=== PATIENT | male | born 1950 | race Caucasian/White ===

== ENCOUNTER → 2020-08-16 14:07 | Outpatient (BNVA) | payer MEDICARE, OTHER, SELFPAY | PROVIDERS: Family Provider Internal Medicine; Visit Provider Podiatrist Foot & Ankle Surgery | DX: M25.571 Pain in right ankle and joints of right foot (principal) | CPT/HCPCS: 73610 ==

== ENCOUNTER → 2020-09-16 08:53 | Outpatient (BNVA) | payer MEDICARE, OTHER, SELFPAY | PROVIDERS: Family Provider Internal Medicine; PCP Family Medicine; Referring Provider Family Medicine; Visit Provider Anesthesiology Pain Medicine | DX: M51.16 Intervertebral disc disorders with radiculopathy, lumbar region (principal); M47.816 Spondylosis without myelopathy or radiculopathy, lumbar region; M54.9 Dorsalgia, unspecified; M19.90 Unspecified osteoarthritis, unspecified site; M62.830 Muscle spasm of back; Z79.899 Other long term (current) drug therapy; Z79.891 Long term (current) use of opiate analgesic | CPT/HCPCS: 99205 ==

== ENCOUNTER → 2020-10-04 10:58 | Outpatient (BNVA) | payer MEDICARE, OTHER, SELFPAY | PROVIDERS: Family Provider Internal Medicine; PCP Family Medicine; Visit Provider Anesthesiology Pain Medicine | DX: M25.511 Pain in right shoulder (principal); M25.512 Pain in left shoulder; Z79.891 Long term (current) use of opiate analgesic | CPT/HCPCS: 20610; J1030; J3490 ==

== ENCOUNTER → 2020-10-26 13:27 | Outpatient (BNVA) | payer MEDICARE, OTHER, SELFPAY | PROVIDERS: Family Provider Internal Medicine; PCP Family Medicine; Visit Provider Anesthesiology Pain Medicine | DX: M47.816 Spondylosis without myelopathy or radiculopathy, lumbar region (principal); M54.9 Dorsalgia, unspecified; Z79.891 Long term (current) use of opiate analgesic | CPT/HCPCS: 64493; 64494; 64495; J3490 ==

== ENCOUNTER → 2020-11-12 09:59 | Outpatient (BNVA) | payer MEDICARE, OTHER, SELFPAY | PROVIDERS: Family Provider Internal Medicine; PCP Family Medicine; Visit Provider Anesthesiology Pain Medicine | DX: M51.16 Intervertebral disc disorders with radiculopathy, lumbar region (principal); M54.9 Dorsalgia, unspecified; M47.816 Spondylosis without myelopathy or radiculopathy, lumbar region; M62.830 Muscle spasm of back; M19.90 Unspecified osteoarthritis, unspecified site; M25.511 Pain in right shoulder; M25.512 Pain in left shoulder; Z79.899 Other long term (current) drug therapy | CPT/HCPCS: 99214 ==

== ENCOUNTER → 2020-11-16 12:34 | Outpatient (BNVA) | payer MEDICARE, OTHER, SELFPAY | PROVIDERS: Family Provider Internal Medicine; PCP Family Medicine; Visit Provider Anesthesiology Pain Medicine | DX: M47.816 Spondylosis without myelopathy or radiculopathy, lumbar region (principal); M54.9 Dorsalgia, unspecified | CPT/HCPCS: 64635; 64636; J1030 ==

== ENCOUNTER 2020-11-29 12:02 | Outpatient (CLI) | payer MEDICARE, OTHER, SELFPAY | END 2020-11-29 12:03 | disposition home or self-care (01) | LOC: SPT 12:03 | PROVIDERS: Family Provider Internal Medicine; PCP Family Medicine; Visit Provider Podiatrist Foot & Ankle Surgery | DX: Z46.89 Encounter for fitting and adjustment of other specified devices (principal); M21.371 Foot drop, right foot; M54.10 Radiculopathy, site unspecified; M25.371 Other instability, right ankle | CPT/HCPCS: 97760; L1902 ==

== ENCOUNTER → 2020-11-30 13:36 | Outpatient (BNVA) | payer MEDICARE, OTHER, SELFPAY | PROVIDERS: Family Provider Internal Medicine; PCP Family Medicine; Visit Provider Anesthesiology Pain Medicine | DX: M47.816 Spondylosis without myelopathy or radiculopathy, lumbar region (principal); M54.9 Dorsalgia, unspecified; Z79.891 Long term (current) use of opiate analgesic | CPT/HCPCS: 64635; 64636; J1030 ==

== ENCOUNTER → 2020-12-14 11:01 | Outpatient (BNVA) | payer MEDICARE, OTHER, SELFPAY | PROVIDERS: Family Provider Internal Medicine; PCP Family Medicine; Visit Provider Anesthesiology Pain Medicine | DX: M51.16 Intervertebral disc disorders with radiculopathy, lumbar region (principal); M47.816 Spondylosis without myelopathy or radiculopathy, lumbar region; M54.9 Dorsalgia, unspecified; M19.019 Primary osteoarthritis, unspecified shoulder; M62.830 Muscle spasm of back; Z79.899 Other long term (current) drug therapy; Z79.891 Long term (current) use of opiate analgesic | CPT/HCPCS: 99214 ==

== ENCOUNTER → 2021-01-11 09:47 | Outpatient (BNVA) | payer MEDICARE, OTHER, SELFPAY | PROVIDERS: Family Provider Internal Medicine; PCP Family Medicine; Visit Provider Anesthesiology Pain Medicine | DX: M51.16 Intervertebral disc disorders with radiculopathy, lumbar region (principal); M48.062 Spinal stenosis, lumbar region with neurogenic claudication; M47.816 Spondylosis without myelopathy or radiculopathy, lumbar region; M19.019 Primary osteoarthritis, unspecified shoulder; M54.9 Dorsalgia, unspecified; M62.830 Muscle spasm of back; Z79.899 Other long term (current) drug therapy; Z79.891 Long term (current) use of opiate analgesic | CPT/HCPCS: 99214 ==

== ENCOUNTER → 2021-02-01 13:22 | Outpatient (BNVA) | payer OTHER, SELFPAY | PROVIDERS: Family Provider Internal Medicine; PCP Family Medicine; Referring Provider Anesthesiology Pain Medicine; Visit Provider Orthopaedic Surgery | DX: M62.830 Muscle spasm of back (principal); M51.16 Intervertebral disc disorders with radiculopathy, lumbar region; M47.016 Anterior spinal artery compression syndromes, lumbar region | CPT/HCPCS: 72110 ==

== ENCOUNTER → 2021-02-22 12:32 | Outpatient (BNVA) | payer OTHER, SELFPAY | PROVIDERS: Family Provider Internal Medicine; PCP Family Medicine; Visit Provider Anesthesiology Pain Medicine | DX: M19.011 Primary osteoarthritis, right shoulder (principal); M19.012 Primary osteoarthritis, left shoulder; E11.9 Type 2 diabetes mellitus without complications; M51.16 Intervertebral disc disorders with radiculopathy, lumbar region; M47.816 Spondylosis without myelopathy or radiculopathy, lumbar region; M19.90 Unspecified osteoarthritis, unspecified site; M54.9 Dorsalgia, unspecified; M62.830 Muscle spasm of back; Z79.899 Other long term (current) drug therapy; Z79.891 Long term (current) use of opiate analgesic | CPT/HCPCS: 20610; J1030; J3490 ==

== ENCOUNTER → 2021-03-28 10:07 | Outpatient (BNVA) | payer OTHER, SELFPAY | PROVIDERS: Family Provider Internal Medicine; PCP Family Medicine; Visit Provider Anesthesiology Pain Medicine | DX: M51.16 Intervertebral disc disorders with radiculopathy, lumbar region (principal); M47.816 Spondylosis without myelopathy or radiculopathy, lumbar region; M48.062 Spinal stenosis, lumbar region with neurogenic claudication; M19.90 Unspecified osteoarthritis, unspecified site; M53.3 Sacrococcygeal disorders, not elsewhere classified; M62.830 Muscle spasm of back; M25.511 Pain in right shoulder; M25.512 Pain in left shoulder; M79.604 Pain in right leg; M79.605 Pain in left leg; Z79.891 Long term (current) use of opiate analgesic | CPT/HCPCS: 99214 ==

== ENCOUNTER 2021-04-18 12:54 | Outpatient (CLI) | payer OTHER, SELFPAY ==
--- NOTE | 2021-04-18 13:08 | MR_ITS ---
WS: [id number] MRI LUMBAR SPINE NONCONTRAST TECHNIQUE: Sagittal T1, T2 and STIR imaging. Axial T1 and T2 imaging. CLINICAL INFORMATION: M54.5 - Low back pain COMPARISON: MRI 5 017 FINDINGS: Mild lumbar curve. No acute compression. No high-grade central canal stenosis. Small central protrusi on T10-T11 with mild central canal stenosis. L1-L2: No significant disc bulging. Moderate facet arthropathy. Spinal canal and foramen are patent. L2-L3: Mild disc bulging with osteophytic ridging. Mild facet arthropathy. Spinal canal and foramen a re patent. L3-L4: Mild disc bulging with osteophytic ridging. Impingement on the right subarticular recess and t raversing right L4 nerve root. Mild to moderate right and no significant left foraminal narrowing. Mo derate facet arthropathy. L4-L5: Mild disc bulging and osteophytic ridging. Moderate central canal stenosis. Impingement ramandeep sing L5 nerve roots bilaterally. Moderate facet arthropathy with ligamentum flavum flavum hypertrophy . Moderate right and no significant left foraminal narrowing.. L5-S1: Right eccentric disc osteophyte complex. Impingement on the right subarticular recess and ford ersing right S1 nerve root. Moderate facet arthropathy. Left foramen is patent. Moderate right L5-S1 foraminal narrowing unchanged from previous. Visualized pelvic bony structures: Normal. Paravertebral soft tissues: Normal. MR/MR lumbar spine wo con* [id number] IMPRESSION: 1. Mild lumbar curve. No acute compression. No high-grade central canal stenos is. 2. Small central protrusion T10-11 with mild central canal stenosis. This is s imilar to previous. 3. Disc bulging worse L4-5 with moderate central canal stenosis and impingemen t traversing L5 nerve roots bilaterally. This is unchanged from previous.Modera te right L4-5 foraminal narrowing. Recommend correlation for L4 nerve root symp toms. 4. Findings mild disc bulging with slight impingement on the right subarticula r recess and traversing right L4 nerve root. Mild to moderate right L3-4 forami nal narrowing. Recommend correlation for right L3 nerve root symptoms. This is stable since previous. 5. Moderate facet arthropathy L3-L5. 6. Disc osteophyte complex L5-S1 eccentric to the right impinges the traversin g right S1 nerve root and Right L5 nerve root unchanged from previous. Moderate right L5-S1 foraminal narrowing. This is stable compared to previous.
== END 2021-04-18 12:55 | disposition home or self-care (01) ==
PROVIDERS: PCP Family Medicine; Visit Provider Orthopaedic Surgery
DX: M25.78 Osteophyte, vertebrae (principal); M47.816 Spondylosis without myelopathy or radiculopathy, lumbar region; M51.26 Other intervertebral disc displacement, lumbar region
CPT/HCPCS: 72148

== ENCOUNTER → 2021-04-25 09:50 | Outpatient (BNVA) | payer OTHER, SELFPAY | PROVIDERS: PCP Family Medicine; Visit Provider Anesthesiology Pain Medicine | DX: G89.29 Other chronic pain (principal); M51.16 Intervertebral disc disorders with radiculopathy, lumbar region; M47.816 Spondylosis without myelopathy or radiculopathy, lumbar region; M19.90 Unspecified osteoarthritis, unspecified site; M48.062 Spinal stenosis, lumbar region with neurogenic claudication; M25.511 Pain in right shoulder; M25.512 Pain in left shoulder; M62.830 Muscle spasm of back; M53.3 Sacrococcygeal disorders, not elsewhere classified; Z79.891 Long term (current) use of opiate analgesic | CPT/HCPCS: 99214 ==

== ENCOUNTER → 2021-05-06 12:33 | Outpatient (BNVA) | payer OTHER, SELFPAY | PROVIDERS: PCP Family Medicine; Visit Provider Anesthesiology Pain Medicine | DX: Z01.812 Encounter for preprocedural laboratory examination (principal); E11.9 Type 2 diabetes mellitus without complications; M53.3 Sacrococcygeal disorders, not elsewhere classified; M48.062 Spinal stenosis, lumbar region with neurogenic claudication; Z79.891 Long term (current) use of opiate analgesic | CPT/HCPCS: 36416; 82962; G0260; J1030; J3490 ==

== ENCOUNTER → 2021-05-23 10:48 | Outpatient (BNVA) | payer OTHER, SELFPAY | PROVIDERS: PCP Family Medicine; Visit Provider Anesthesiology Pain Medicine | DX: M47.816 Spondylosis without myelopathy or radiculopathy, lumbar region (principal); M48.062 Spinal stenosis, lumbar region with neurogenic claudication; M51.16 Intervertebral disc disorders with radiculopathy, lumbar region; M53.3 Sacrococcygeal disorders, not elsewhere classified; M19.90 Unspecified osteoarthritis, unspecified site; M25.511 Pain in right shoulder; M25.512 Pain in left shoulder; M79.604 Pain in right leg; M79.605 Pain in left leg; M62.830 Muscle spasm of back; Z79.891 Long term (current) use of opiate analgesic | CPT/HCPCS: 99214 ==

== ENCOUNTER 2021-06-06 08:00 | Outpatient (CLI) | payer OTHER, SELFPAY ==
[2021-06-06 08:40] VITALS: BMI 28.8
--- NOTE | 2021-06-06 08:40 | ECG_ITS ---
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 Interpretive Statements NAME OF STUDY: EXERCISE SESTAMIBI STRESS TEST INDICATION: Shortness of Breath, PROCEDURE: The baseline electrocardiogram showed normal sinus rhythm with left axis deviation. Nonspecific T wave changes. Voltage criteria for LVH.. At the baseline, the patient's blood pressure was 148/70 mm Hg with a heart rate of 78. The patient exercised for 6 minutes on a standard Isai protocol. Patient attained a maximum heart rate of 151 beats per minute(101% of the maximum predicted heart rate) with a blood pressure at the peak exercise of 211/75 mm Hg. The EKG at the peak exercise revealed nonspecific T wave changes.. Patient did not have any chest pain or any significant arrhythmis with the exercise Sestamibi was injected 1 minute prior to the peak exercise During the recovery phase, there were no new changes. Blood pressure at the end of the recovery phase was 135/64 mm Hg with a heart rate of 90 per minute. CONCLUSION: 1. No significant EKG changes with the treadmill exercise 2. No exercise-induced chest pain or cardiac arrhythmia 3. Good impaired exercise tolerance, attained a maximum of METs 4. Sestamibi/Sestamibi perfusion results pending; see separate report. Electronically Signed On 06-10-2021 0:28:45 CDT by Jacob Ghosh M.D. [id number]
--- NOTE | 2021-06-06 08:41 | NMCV_ITS ---
NM ronal perf SPECT r/s* [id number] Aj Sharp Age: 70 Gender: M : 1950 Exam Date: 06/06/2021 09:28 Ordering Phys: Jacob Ghosh MD ([email or web address]) Technologist: HENNA Granados Exam Location: [facility] Indications: SHORTNESS OF BREATH STRESS TEST [facility] IMAGE PROTOCOL Rest/Stress 1 Exercise Day Radiopharmaceutical Dose (mCi) Administration Site Administered by Rest: Tc-99m 10.8 IV HENNA Fischer Sestamibi Stress:Tc-99m 32.6 IV HENNA Fischer Sestamibi Rest: 06-Jun-2021 60 Discovery 630 Stress: 06-Jun-2021 30 Discovery 630 Radiopharmaceutical was injected at 97% maximum heart rate. Images obtained in supine and prone position. SPECT RESULTS Technical Quality: Excellent Raw Data Analysis: Normal Image Corrections: No attenuation or motion correction applied Summed Stress Score: 0 Summed Rest Score: 4 Summed Difference Score: 0 PERFUSION FINDINGS Patchy areas of decreased tracer uptake were noted to the inferior wall and apical regions. No significant reversibility was noted in these regions. FUNCTIONAL RESULTS (calculated via Gated SPECT) Stress Image LV EF (%): 67 Stress EDV (mL):106 TID: 1.03 Stress ESV (mL):35 FUNCTIONAL FINDINGS: Segmental wall motion analysis revealing no gross wall motion abnormalities IMPRESSIONS 1. Myocardial perfusion imaging revealing patchy areas of persistent decreased tracer uptake in the inferior wall and apical regions suggestive of myocardial scarring versus attenuation artifact. 2. Normal LV ejection fraction of 67%. 3. LV wall motion analysis revealing no gross wall motion abnormalities. 4. Normal LV volume No significant coronary ischemia, based on the above findings Dr Jacob Ghosh MD FACC (Electronically Signed) Final Date: 06 June 2021 21:33 S
[2021-06-06 10:25] VITALS: BP 135/64; PULSE 87
== END 2021-06-06 08:01 | disposition home or self-care (01) ==
LOC: CDL 08:05
PROVIDERS: PCP Family Medicine; Visit Provider Internal Medicine Cardiovascular Disease
DX: R06.02 Shortness of breath (principal)
CPT/HCPCS: 78452; 93017; A9500

== ENCOUNTER → 2021-06-20 10:27 | Outpatient (BNVA) | payer OTHER, SELFPAY | PROVIDERS: PCP Family Medicine; Visit Provider Anesthesiology Pain Medicine | DX: M51.16 Intervertebral disc disorders with radiculopathy, lumbar region (principal); M47.816 Spondylosis without myelopathy or radiculopathy, lumbar region; M48.062 Spinal stenosis, lumbar region with neurogenic claudication; M53.3 Sacrococcygeal disorders, not elsewhere classified; M62.830 Muscle spasm of back; M19.011 Primary osteoarthritis, right shoulder; M19.012 Primary osteoarthritis, left shoulder; E11.9 Type 2 diabetes mellitus without complications; M79.604 Pain in right leg; M79.605 Pain in left leg; I10 Essential (primary) hypertension; E78.2 Mixed hyperlipidemia; Z79.891 Long term (current) use of opiate analgesic | CPT/HCPCS: 99214 ==

== ENCOUNTER → 2021-06-29 11:50 | Outpatient (BNVA) | payer OTHER, SELFPAY | PROVIDERS: PCP Family Medicine; Referring Provider Orthopaedic Surgery; Visit Provider Orthopaedic Surgery | DX: M12.811 Other specific arthropathies, not elsewhere classified, right shoulder (principal); M12.812 Other specific arthropathies, not elsewhere classified, left shoulder | CPT/HCPCS: 73030 ==

== ENCOUNTER → 2021-08-23 10:24 | Outpatient (BNVA) | payer OTHER, SELFPAY | PROVIDERS: PCP Family Medicine; Visit Provider Anesthesiology Pain Medicine | DX: G89.29 Other chronic pain (principal); M51.16 Intervertebral disc disorders with radiculopathy, lumbar region; M47.816 Spondylosis without myelopathy or radiculopathy, lumbar region; M48.062 Spinal stenosis, lumbar region with neurogenic claudication; M62.830 Muscle spasm of back; M53.3 Sacrococcygeal disorders, not elsewhere classified; M19.019 Primary osteoarthritis, unspecified shoulder; M79.604 Pain in right leg; M79.605 Pain in left leg; Z79.899 Other long term (current) drug therapy; Z79.891 Long term (current) use of opiate analgesic | CPT/HCPCS: 99214 ==

== ENCOUNTER → 2021-09-07 13:44 | Outpatient (BNVA) | payer OTHER, SELFPAY | PROVIDERS: PCP Family Medicine; Visit Provider Anesthesiology Pain Medicine | DX: Z01.812 Encounter for preprocedural laboratory examination (principal); E11.9 Type 2 diabetes mellitus without complications; M25.511 Pain in right shoulder; M25.512 Pain in left shoulder; Z79.891 Long term (current) use of opiate analgesic | CPT/HCPCS: 20610; 36416; 82962; J1030; J3490 ==

== ENCOUNTER → 2021-09-21 11:26 | Outpatient (BNVA) | payer OTHER, SELFPAY | PROVIDERS: PCP Family Medicine; Visit Provider Anesthesiology Pain Medicine | DX: G89.29 Other chronic pain (principal); M51.16 Intervertebral disc disorders with radiculopathy, lumbar region; M47.816 Spondylosis without myelopathy or radiculopathy, lumbar region; M48.062 Spinal stenosis, lumbar region with neurogenic claudication; M19.019 Primary osteoarthritis, unspecified shoulder; M19.90 Unspecified osteoarthritis, unspecified site; M25.511 Pain in right shoulder; M25.512 Pain in left shoulder; M79.604 Pain in right leg; M79.605 Pain in left leg; M62.830 Muscle spasm of back; M53.3 Sacrococcygeal disorders, not elsewhere classified; Z79.899 Other long term (current) drug therapy; Z79.891 Long term (current) use of opiate analgesic | CPT/HCPCS: 99214 ==

== ENCOUNTER → 2021-10-20 10:48 | Outpatient (BNVA) | payer OTHER, SELFPAY | PROVIDERS: PCP Family Medicine; Visit Provider Anesthesiology Pain Medicine | DX: G89.29 Other chronic pain (principal); M51.16 Intervertebral disc disorders with radiculopathy, lumbar region; M47.816 Spondylosis without myelopathy or radiculopathy, lumbar region; M48.062 Spinal stenosis, lumbar region with neurogenic claudication; M19.90 Unspecified osteoarthritis, unspecified site; M53.3 Sacrococcygeal disorders, not elsewhere classified; M62.830 Muscle spasm of back; Z79.899 Other long term (current) drug therapy; Z79.891 Long term (current) use of opiate analgesic | CPT/HCPCS: 99214 ==

== ENCOUNTER → 2021-11-21 10:55 | Outpatient (BNVA) | payer OTHER, SELFPAY | PROVIDERS: PCP Family Medicine; Visit Provider Anesthesiology Pain Medicine | DX: M51.16 Intervertebral disc disorders with radiculopathy, lumbar region (principal); M47.816 Spondylosis without myelopathy or radiculopathy, lumbar region; M48.062 Spinal stenosis, lumbar region with neurogenic claudication; M19.90 Unspecified osteoarthritis, unspecified site; M62.830 Muscle spasm of back; M53.3 Sacrococcygeal disorders, not elsewhere classified; M25.511 Pain in right shoulder; M25.512 Pain in left shoulder; M79.604 Pain in right leg; M79.605 Pain in left leg; Z79.899 Other long term (current) drug therapy; Z79.891 Long term (current) use of opiate analgesic | CPT/HCPCS: 99214 ==

== ENCOUNTER → 2021-12-20 10:23 | Outpatient (BNVA) | payer OTHER, SELFPAY | PROVIDERS: PCP Family Medicine; Visit Provider Anesthesiology Pain Medicine | DX: G89.29 Other chronic pain (principal); M51.16 Intervertebral disc disorders with radiculopathy, lumbar region; M47.816 Spondylosis without myelopathy or radiculopathy, lumbar region; M48.062 Spinal stenosis, lumbar region with neurogenic claudication; M25.511 Pain in right shoulder; M25.512 Pain in left shoulder; M19.019 Primary osteoarthritis, unspecified shoulder; M53.3 Sacrococcygeal disorders, not elsewhere classified; M79.604 Pain in right leg; M79.605 Pain in left leg; M62.830 Muscle spasm of back; Z79.899 Other long term (current) drug therapy; Z79.891 Long term (current) use of opiate analgesic | CPT/HCPCS: 99214 ==

== ENCOUNTER → 2022-01-24 10:40 | Outpatient (BNVA) | payer OTHER, SELFPAY | PROVIDERS: PCP Family Medicine; Visit Provider Anesthesiology Pain Medicine | DX: M51.16 Intervertebral disc disorders with radiculopathy, lumbar region (principal); M79.18 Myalgia, other site; M47.816 Spondylosis without myelopathy or radiculopathy, lumbar region; M48.062 Spinal stenosis, lumbar region with neurogenic claudication; M19.90 Unspecified osteoarthritis, unspecified site; M53.3 Sacrococcygeal disorders, not elsewhere classified; Z79.899 Other long term (current) drug therapy; Z79.891 Long term (current) use of opiate analgesic | CPT/HCPCS: 20553; 99213; J1030; J3490 ==

== ENCOUNTER → 2022-02-23 14:13 | Outpatient (BNVA) | payer OTHER, SELFPAY | PROVIDERS: PCP Family Medicine; Visit Provider Anesthesiology Pain Medicine | DX: M19.011 Primary osteoarthritis, right shoulder (principal); M19.012 Primary osteoarthritis, left shoulder; E11.65 Type 2 diabetes mellitus with hyperglycemia; Z79.84 Long term (current) use of oral hypoglycemic drugs; Z79.891 Long term (current) use of opiate analgesic | CPT/HCPCS: 20610; 36416; 82962; J1040 ==

== ENCOUNTER → 2022-02-28 09:46 | Outpatient (BNVA) | payer OTHER, SELFPAY | PROVIDERS: PCP Family Medicine; Visit Provider Anesthesiology Pain Medicine | DX: M51.16 Intervertebral disc disorders with radiculopathy, lumbar region (principal); M47.816 Spondylosis without myelopathy or radiculopathy, lumbar region; M48.062 Spinal stenosis, lumbar region with neurogenic claudication; M19.011 Primary osteoarthritis, right shoulder; M19.012 Primary osteoarthritis, left shoulder; M53.3 Sacrococcygeal disorders, not elsewhere classified; M25.511 Pain in right shoulder; M25.512 Pain in left shoulder; M79.604 Pain in right leg; M79.605 Pain in left leg; M62.830 Muscle spasm of back; Z79.891 Long term (current) use of opiate analgesic; Z79.899 Other long term (current) drug therapy | CPT/HCPCS: 99214 ==

== ENCOUNTER → 2022-03-14 10:17 | Outpatient (BNVA) | payer OTHER, SELFPAY | PROVIDERS: PCP Family Medicine; Visit Provider Internal Medicine Cardiovascular Disease | DX: I25.10 Atherosclerotic heart disease of native coronary artery without angina pectoris (principal); I10 Essential (primary) hypertension; E11.65 Type 2 diabetes mellitus with hyperglycemia; Z79.84 Long term (current) use of oral hypoglycemic drugs; E78.2 Mixed hyperlipidemia | CPT/HCPCS: 99214 ==

== ENCOUNTER → 2022-03-30 09:07 | Outpatient (BNVA) | payer OTHER, SELFPAY | PROVIDERS: PCP Family Medicine; Visit Provider Anesthesiology Pain Medicine | DX: Z79.891 Long term (current) use of opiate analgesic (principal); M51.16 Intervertebral disc disorders with radiculopathy, lumbar region; M47.816 Spondylosis without myelopathy or radiculopathy, lumbar region; M19.90 Unspecified osteoarthritis, unspecified site; M48.062 Spinal stenosis, lumbar region with neurogenic claudication; M53.3 Sacrococcygeal disorders, not elsewhere classified; M62.830 Muscle spasm of back; Z79.899 Other long term (current) drug therapy | CPT/HCPCS: 99214 ==

== ENCOUNTER → 2022-04-18 13:56 | Outpatient (BNVA) | payer OTHER, SELFPAY | PROVIDERS: PCP Family Medicine; Visit Provider Anesthesiology Pain Medicine | DX: Z79.891 Long term (current) use of opiate analgesic (principal); Z79.84 Long term (current) use of oral hypoglycemic drugs; M47.816 Spondylosis without myelopathy or radiculopathy, lumbar region; E11.65 Type 2 diabetes mellitus with hyperglycemia; M48.062 Spinal stenosis, lumbar region with neurogenic claudication | CPT/HCPCS: 36416; 64635; 64636; 82962; J1030 ==

== ENCOUNTER → 2022-05-22 12:24 | Outpatient (BNVA) | payer OTHER, SELFPAY | PROVIDERS: PCP Family Medicine; Visit Provider Anesthesiology Pain Medicine | DX: Z01.812 Encounter for preprocedural laboratory examination (principal); M47.816 Spondylosis without myelopathy or radiculopathy, lumbar region; M48.062 Spinal stenosis, lumbar region with neurogenic claudication; Z79.84 Long term (current) use of oral hypoglycemic drugs; E11.9 Type 2 diabetes mellitus without complications | CPT/HCPCS: 36416; 64635; 64636; 82962; J1030 ==

== ENCOUNTER 2022-08-18 12:59 | Outpatient (CLI) | payer OTHER, SELFPAY ==
--- NOTE | 2022-08-18 13:20 | US_ITS ---
WS: [id number] Subcutaneous ultrasound to the posterior right knee, 08/18/2022. Clinical Data: R KNEE PAIN/FULLNESS POSTERIOR FOSSA FLIP TO CITC Comparison: None. Findings: There is a cystic region in the subcutaneous tissue measuring 0.96 x 1.42 x 4.02 cm. There is no sign ificant debris within this cyst. No masses are noted. US/US soft tissue/extremity [id number] Impression: Probable right knee Cantu's cyst.
== END 2022-08-18 13:00 | disposition home or self-care (01) ==
LOC: RAD 13:00
PROVIDERS: PCP Family Medicine; Visit Provider Family Medicine
DX: M25.561 Pain in right knee (principal)
CPT/HCPCS: 76882

== ENCOUNTER → 2022-09-14 11:14 | Outpatient (BNVA) | payer OTHER, SELFPAY | PROVIDERS: PCP Family Medicine; Visit Provider Internal Medicine Cardiovascular Disease | DX: I25.10 Atherosclerotic heart disease of native coronary artery without angina pectoris (principal); I10 Essential (primary) hypertension; E78.2 Mixed hyperlipidemia; E11.65 Type 2 diabetes mellitus with hyperglycemia; Z79.84 Long term (current) use of oral hypoglycemic drugs | CPT/HCPCS: 99214 ==

== ENCOUNTER → 2023-01-15 10:58 | Outpatient (BNVA) | payer OTHER, SELFPAY | PROVIDERS: PCP Family Medicine; Referring Provider Family Medicine; Visit Provider Student in an Organized Health Care Education/Training Program | DX: M17.11 Unilateral primary osteoarthritis, right knee (principal) | CPT/HCPCS: 20610; 73560; 73565; 99204; J3301 ==

== ENCOUNTER → 2023-02-01 13:05 | Outpatient (BNVA) | payer OTHER, SELFPAY | PROVIDERS: PCP Family Medicine; Visit Provider Nurse Practitioner Family | DX: E11.65 Type 2 diabetes mellitus with hyperglycemia (principal); M17.11 Unilateral primary osteoarthritis, right knee; Z79.84 Long term (current) use of oral hypoglycemic drugs | CPT/HCPCS: 99213 ==

== ENCOUNTER → 2023-03-12 13:31 | Outpatient (BNVA) | payer OTHER, SELFPAY | PROVIDERS: PCP Family Medicine; Visit Provider Student in an Organized Health Care Education/Training Program | DX: M17.11 Unilateral primary osteoarthritis, right knee (principal) | CPT/HCPCS: 99213 ==

== ENCOUNTER → 2023-03-29 09:52 | Outpatient (BNVA) | payer OTHER, SELFPAY | PROVIDERS: PCP Family Medicine; Visit Provider Internal Medicine Cardiovascular Disease | DX: I25.10 Atherosclerotic heart disease of native coronary artery without angina pectoris (principal); E11.65 Type 2 diabetes mellitus with hyperglycemia; E78.2 Mixed hyperlipidemia; I10 Essential (primary) hypertension; Z79.84 Long term (current) use of oral hypoglycemic drugs | CPT/HCPCS: 99214 ==

== ENCOUNTER 2023-04-06 10:52 | Outpatient (CLI) | payer OTHER, SELFPAY ==
--- NOTE | 2023-04-06 11:45 | MR_ITS ---
WS: [id number] MRI RIGHT KNEE NONCONTRAST TECHNIQUE: Axial PD, coronal PD fat sat, coronal PD, sagittal PD, and sagittal PD fat-sat images obta ined. CLINICAL INFORMATION: rule out meniscus tear COMPARISON: None. FINDINGS: Distal quadriceps and patella tendons are intact. Hypertrophic patella. Small suprapatellar effusion. Moderate tricompartmental arthritis. Edema involving the medial femoral condyle with osteochondral defect measuring 9 mm. Full-thickness c artilage defects in the medial joint compartment with subchondral edema. Tear involving the medial me niscal root with blunting. Lateral meniscus demonstrates chronic thinning but no acute tear. Lateral collateral ligament appears intact. Moderate chondromalacia patella. No subchondral edema. Me dial collateral ligament appears intact. Popliteus appears intact. Normal medial and lateral patellar retinaculum. Lobulated popliteal cyst measuring 3.1 x 1.2 x 1.9 cm AP by transverse by craniocaudal. MR/MR knee RT wo con* [id number] IMPRESSION: 1. Normal ACL and PCL. 2. Small suprapatellar effusion. 3. Tear involving the medial meniscus at the meniscal root with blunting. Mode rate to advanced narrowing medial joint compartment with subchondral edema. 4. Grade IV chondromalacia medial joint compartment with small osteochondral d efect measuring 9 mm. 5. No acute appearing lateral meniscal tears. Chronic thinning of the lateral meniscus. 6. Moderate chondromalacia patella. 7. Lobulated popliteal cyst. Outbridge grading: grade IV: full-thickness cartilage loss with underlying bone reactive changes
== END 2023-04-06 10:53 | disposition home or self-care (01) ==
LOC: RAD 10:56
PROVIDERS: PCP Family Medicine; Visit Provider Student in an Organized Health Care Education/Training Program
DX: M17.11 Unilateral primary osteoarthritis, right knee (principal); S83.241A Other tear of medial meniscus, current injury, right knee, initial encounter; X58.XXXA Exposure to other specified factors, initial encounter; M25.461 Effusion, right knee; M22.41 Chondromalacia patellae, right knee; M71.21 Synovial cyst of popliteal space [Baker], right knee
CPT/HCPCS: 73721

== ENCOUNTER → 2023-04-19 12:41 | Outpatient (BNVA) | payer OTHER, SELFPAY | PROVIDERS: PCP Family Medicine; Visit Provider Student in an Organized Health Care Education/Training Program | DX: Z01.818 Encounter for other preprocedural examination (principal); M17.11 Unilateral primary osteoarthritis, right knee; E11.9 Type 2 diabetes mellitus without complications; Z79.84 Long term (current) use of oral hypoglycemic drugs | CPT/HCPCS: 99214 ==

== ENCOUNTER 2023-05-21 14:11 | Outpatient (CLI) | payer OTHER, SELFPAY ==
--- NOTE | 2023-05-21 14:30 | CT_ITS ---
WS: [id number] CT RIGHT KNEE, NONCONTRAST TECHNIQUE: Noncontrast CT of the RIGHT knee to include the RIGHT hip and ankle. [facility] CLINICAL INFORMATION: djd right knee COMPARISON: None. DLP: 1080.[address] scans at [facility] use at least one of these dose optimization techniques: automated e xposure control; mA and/or kV adjustment per patient size (includes targeted exams where dose is matc hed to clinical indication); or iterative reconstruction. FINDINGS: Moderate degenerative narrowing both hips. Hypertrophic changes sacroiliac joints. Enlarged prostate measuring 4.5 cm. Vascular calcification. Small effusion. Moderate to advanced tricompartmental arthr itis worse in the medial joint compartment. Hypertrophic patella. IMPRESSION: Images obtained for preoperative purposes.
== END 2023-05-21 14:12 | disposition home or self-care (01) ==
PROVIDERS: PCP Family Medicine; Visit Provider Student in an Organized Health Care Education/Training Program
DX: M17.11 Unilateral primary osteoarthritis, right knee (principal)
CPT/HCPCS: 73700

== ENCOUNTER → 2023-05-25 09:15 | Outpatient (BNVA) | payer OTHER, SELFPAY | PROVIDERS: PCP Family Medicine; Visit Provider Family Medicine | DX: Z01.818 Encounter for other preprocedural examination (principal); E11.9 Type 2 diabetes mellitus without complications | CPT/HCPCS: 80053; 81000; 83036; 85025 ==

== ENCOUNTER 2023-06-04 10:10 | Observation (INO) | payer OTHER, SELFPAY ==
[2023-06-01 15:05] VITALS: BMI 28.2
[2023-06-04] VITALS (21 sets, daily range): BP systolic 119–175; BP diastolic 63–95; PULSE 68–96; RESP 15–20; TEMP 36.2–36.9; O2SAT 91–97; BMI 28.2
[2023-06-04] MEDS: acetaminophen 1,000 MG/100 ML PIGGYBACK 400 MG IV ×3 (06:39→22:20)
[2023-06-04] MEDS: ketorolac 30 mg/mL INJ IVP (06:39)
[2023-06-04] MEDS: sodium chloride 0.9% 1,000 ML 30 ML IV (06:40)
[2023-06-04] MEDS: lactated ringers 500 ML IV (06:52)
--- NOTE | 2023-06-04 06:53 | ANES.PREANE2 ---
Pre-Anesthetic Assessment Height/Weight: Height 1.88 m Weight 99.79 kg Temp Pulse Resp BP Pulse Ox O2 Del Method 97.2 F L 75 17 175/95 95 Room Air 06/04/23 06:09 06/04/23 06:09 06/04/23 06:09 06/04/23 06:09 06/04/23 06:09 06/04/23 06:09 Preop Diagnosis: Right knee DJD Operation Date: 06/04/23 07:00 Proposed Procedures p RIGHT TOTAL KNEE ARTHROSCOPY WITH NOLAN [id number],M17.11(Right) - Javier Aguilera DO Familial anesthetic complications: None Was Beta James taken within 24 hours: N/A Was Clonidine taken within 24 hours: N/A Last intake: Intake Last Liquid Date 06/03/23 Last Liquid Time 20:30 Last Solid Date 06/03/23 Last Solid Time 20:30 Social No alcohol and No tobacco Exam alert, oriented x 3, clear to auscultation bilaterally and regular rate & rhythm Airway Mallampati: Class II Dentition: full CV/HEM Coronary Artery Disease (not on anticoagulant) and Hypertension Metabolic Diabetes Mellitus Neuropsych 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 - discussed nerve block and possibility of nerve damage, patient desires to proceed Anesthetic Plan ASA status: 3 Anesthesia: Regional (specify below) Risk of > 500 ml blood loss (7ml/kg in children): No Medications/Allergies Home Medications Medication Instructions Recorded Confirmed Last Taken Type Mely AFO #1 ea 08/16/20 04/19/23 Unknown Rx albuterol sulfate 2.5 mg/3 mL 2.5 mg inhalation Q6H 08/16/20 06/01/23 03/21/23 History (0.083 %) solution for nebulization alogliptin 25 mg tablet 25 mg PO DAILY 08/16/20 06/01/23 06/01/23 History ascorbic acid (vitamin C) 1,000 mg 500 mg PO BID 08/16/20 06/01/23 05/28/23 History tablet cholecalciferol (vitamin D3) 125 125 mcg PO DAILY 08/16/20 06/01/23 05/28/23 History mcg (5,000 unit) capsule ASO right ankle #1 ea 11/29/20 04/19/23 Unknown Rx AFO right lower extremity #1 ea 01/17/21 04/19/23 Unknown Rx omega-3 fatty acids 1,000 mg 1,000 mg PO BID 02/01/21 06/01/23 05/28/23 History capsule (Fish Oil Concentrate) zinc acetate 50 mg (zinc) capsule 50 mg PO DAILY 02/01/21 06/01/23 05/28/23 History (Galzin) B-complex with vitamin C 1 tab PO DAILY 05/17/21 06/01/23 05/28/23 History aspirin 81 mg tablet,delayed 81 mg PO DAILY 05/17/21 06/01/23 05/30/23 History release (Adult Aspirin Regimen) glipizide 10 mg tablet 10 mg PO BID 05/17/21 06/01/23 06/01/23 History metformin 1,000 mg tablet 1,000 mg PO BID 05/17/21 06/01/23 06/01/23 History multivitamin 1 tab PO DAILY 05/17/21 06/01/23 05/28/23 History rosuvastatin 40 mg tablet 40 mg PO DAILY #90 tabs 03/14/22 06/01/23 06/01/23 Rx acetaminophen 500 mg capsule 500 mg PO BID@08,16 09/14/22 06/01/23 06/01/23 History lisinopril 40 mg tablet 20 mg PO BID #90 tabs 02/15/23 06/01/23 06/01/23 Rx hydrocodone 5 mg-acetaminophen 325 1 tab PO BID 05/25/23 06/01/23 06/01/23 History mg tablet melatonin 5 mg capsule 30 mg PO BEDTIME 05/25/23 06/01/23 04/19/23 History amoxicillin 500 mg capsule 500 mg PO 3XD 06/01/23 06/01/23 06/01/23 History carvedilol 25 mg tablet 25 mg PO BID 90 days #180 tabs 06/01/23 06/01/23 06/01/23 Rx Allergies Allergy/AdvReac Type Severity Reaction Status Date / Time oxycodone Allergy unknown Verified 05/25/23 09:40 Current Medications Generic Name Dose Route Start Last Admin Trade Name Freq PRN Reason Stop Dose Admin Sodium Chloride 1,000 mls @ 30 mls/hr 06/04/23 06:00 06/04/23 06:40 Sodium Chloride 0.9% IV 06/05/23 05:59 30 mls/hr .Q24H MICHAEL Administration PFSH Anesthesia Medical History ADHD Anxiety Basal cell carcinoma Diabetes Dysthymic disorder Essential hypertension Hiatal hernia Hyperlipidemia Hypertension Impaired hearing Impotence [employer] current use of anticoagulant Low back pain PTSD (post-traumatic stress disorder) Tinnitus Surgical History History of laminectomy History of PTCA History of repair of left rotator cuff History of total knee arthroplasty Family History Mother COPD (chronic obstructive pulmonary disease) Lung disease Father Heart attack CAD (coronary artery disease) Heart aneurysm Sister Cerebral hemorrhage Denies family history of Diabetes Clotting disorder Dementia Chronic kidney disease (CKD) Suicide Anesthesia complication Bleeding disorder Cancer Stroke Social History Smoking and tobacco status: never smoked Second hand smoke exposure: No Alcohol intake: never Substance/Drug Use: never Data Anesthesia Cardiac Studies: Sestamibi Stress Test (Cardiology) 06/06/21
--- NOTE | 2023-06-04 06:55 | W.PM.OPSUD ---
Surgery/Procedure H&P Update DATE OF PROCEDURE: June 04, 2023 DATE H&P PERFORMED: 04/19/23 H&P UPDATE INFORMATION: I have reviewed H&P completed within last 30 days, I have examined patient prior to procedure and No changes to prior documentation PREOP DIAGNOSIS: Right knee DJD PRIMARY INDICATION FOR PROCEDURE: Right knee degenerative joint disease failed conservative treatment PLANNED PROCEDURE: Operation Date: 06/04/23 07:00 Proposed Procedures p RIGHT TOTAL KNEE ARTHROSCOPY WITH NOLAN [id number],M17.11(Right) - Javier Aguilera DO
--- NOTE | 2023-06-04 06:56 | P.HP_ITS ---
Providers/Chief Complaint Admitting Physician: Javier Aguilera DO Primary Care Provider: Hannah Suarez MD Chief Complaint: M17.11 History of Present Illness Aj Sharp is a 72 year old male who presents for hospital admission secondary to failed conservative treatment of right knee degenerative joint disease with plan for right total knee arthroplasty he is failed conservative treatment at this point time elects proceed with a right total knee arthroplasty. He has been worked up in the outpatient setting appropriately as well as went through a preoperative clinic team for clearance for surgical intervention. He has been preoperatively cleared. He presents today to proceed with a right total knee all questions answered. No change in his health at this time. Review of Systems General: Reports: 10 or more systems reviewed and unremarkable except in HPI and below Medications/Allergies Home Medications Medication Instructions Recorded Confirmed Last Taken Type [place] AFO #1 ea 08/16/20 04/19/23 Unknown Rx albuterol sulfate 2.5 mg/3 mL 2.5 mg inhalation Q6H 08/16/20 06/01/23 03/21/23 History (0.083 %) solution for nebulization alogliptin 25 mg tablet 25 mg PO DAILY 08/16/20 06/01/23 06/01/23 History ascorbic acid (vitamin C) 1,000 mg 500 mg PO BID 08/16/20 06/01/23 05/28/23 History tablet cholecalciferol (vitamin D3) 125 125 mcg PO DAILY 08/16/20 06/01/23 05/28/23 History mcg (5,000 unit) capsule ASO right ankle #1 ea 11/29/20 04/19/23 Unknown Rx AFO right lower extremity #1 ea 01/17/21 04/19/23 Unknown Rx omega-3 fatty acids 1,000 mg 1,000 mg PO BID 02/01/21 06/01/23 05/28/23 History capsule (Fish Oil Concentrate) zinc acetate 50 mg (zinc) capsule 50 mg PO DAILY 02/01/21 06/01/23 05/28/23 History (Galzin) B-complex with vitamin C 1 tab PO DAILY 05/17/21 06/01/23 05/28/23 History aspirin 81 mg tablet,delayed 81 mg PO DAILY 05/17/21 06/01/23 05/30/23 History release (Adult Aspirin Regimen) glipizide 10 mg tablet 10 mg PO BID 05/17/21 06/01/23 06/01/23 History metformin 1,000 mg tablet 1,000 mg PO BID 05/17/21 06/01/23 06/01/23 History multivitamin 1 tab PO DAILY 05/17/21 06/01/23 05/28/23 History rosuvastatin 40 mg tablet 40 mg PO DAILY #90 tabs 03/14/22 06/01/23 06/01/23 Rx acetaminophen 500 mg capsule 500 mg PO BID@08,16 09/14/22 06/01/23 06/01/23 History lisinopril 40 mg tablet 20 mg PO BID #90 tabs 02/15/23 06/01/23 06/01/23 Rx hydrocodone 5 mg-acetaminophen 325 1 tab PO BID 05/25/23 06/01/23 06/01/23 History mg tablet melatonin 5 mg capsule 30 mg PO BEDTIME 05/25/23 06/01/23 04/19/23 History amoxicillin 500 mg capsule 500 mg PO 3XD 06/01/23 06/01/23 06/01/23 History carvedilol 25 mg tablet 25 mg PO BID 90 days #180 tabs 06/01/23 06/01/23 06/01/23 Rx Allergies Allergy/AdvReac Type Severity Reaction Status Date / Time oxycodone Allergy unknown Verified 05/25/23 09:40 PFSH Acute PFSH: Medical History ADHD Anxiety Basal cell carcinoma Diabetes Dysthymic disorder Essential hypertension Hiatal hernia Hyperlipidemia Hypertension Impaired hearing Impotence 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 Low back pain PTSD (post-traumatic stress disorder) Tinnitus Surgical History History of laminectomy History of PTCA History of repair of left rotator cuff History of total knee arthroplasty Family History Mother COPD (chronic obstructive pulmonary disease) Lung disease Father Heart attack CAD (coronary artery disease) Heart aneurysm Sister Cerebral hemorrhage Denies family history of Diabetes Clotting disorder Dementia Chronic kidney disease (CKD) Suicide Anesthesia complication Bleeding disorder Cancer Stroke Social History (Reviewed 04/19/23 @ 12:47 by JENNIFER Cleaning Smoking and tobacco status: never smoked Second hand smoke exposure: No Alcohol intake: never Substance/Drug Use: never Vitals/I&O/Wt Last Vital Signs Temp 97.2 F L 06/04/23 06:09 Pulse 75 06/04/23 06:09 Resp 17 06/04/23 06:09 BP 175/95 06/04/23 06:09 Pulse Ox 95 06/04/23 06:09 O2 Del Method Room Air 06/04/23 06:09 06/03/23 06/03/23 06/04/23 14:59 22:59 06:59 Intake Total 100 / 100 Balance 100 / 100 Weight last 48 hrs Weight 220 lb Physical Exam Narrative: Right knee examination there are no gross deformities of the hips or ankles. The range of motion of both hips and ankles are normal and no tenderness to palpation.? Right knee shows boggy effusion. There is severe tenderness to palpation primarily over the medial compartment of the right knee. Crepitance is felt with range of motion. There is patellafemoral crepitance as well.? Positive patellar grind with significant pain and discomfort. knees are stable to varus and valgus stress testing. There is a varus alignment grossly of 10 degrees correctable on ex amination.? range of motion 0 to greater than 115 Const: COMMON NORMALS: no acute distress and average body habitus HENMT: COMMON NORMALS: normocephalic and atraumatic Resp: COMMON NORMALS: normal respiratory effort and No retractions Data Xray Ortho: My impression: X-rays in the outpatient setting of the right knee reviewed in person int erpreted by myself demonstrating a stable left total knee arthroplasty with a tricompartmental arthritic changes noted throughout the right knee. A&P Assessment and plan (1) Right knee DJD: Plan Patient presents today findings consistent with right knee degenerative joint disease failed conservative treatments been worked up in the outpatient setting at this point in time has elected to proceed with a right total knee arthroplasty as he is failed conservative treatment. He is went to the pr eoperative clearance process and has been medically optimized. At this point in time we will proceed with a right total knee arthroplasty today. Plan for hospital admission with internal medicine consulted for medical management postoperatively. Patient understands agrees with current plan. Questions answered. Attestations Medical Necessity Statement*: Postop right total knee arthroplasty Coding Level of Care Code Acute Code for Chg Fwd Diagnoses Right knee DJD M17.11
[2023-06-04] MEDS: ceFAZolin 2,000 MG in sodium chloride 0.9% (plus) 50 ML 100 MG IV ×3 (07:02→22:47)
[2023-06-04] MEDS: tranexamic acid 1,000 mg/10mL SDV 1000 MG XX (08:21)
[2023-06-04] MEDS: EPINEPHrine 1 mg/mL INJ XX (08:21)
[2023-06-04] MEDS: ROPivacaine 0.2% Premix 100 mL 200 MG INTRA-ARTI (08:21)
[2023-06-04] MEDS: ketorolac 30 mg/mL INJ (08:21)
[2023-06-04 08:49] LABS: Glucose Point of Care 175 mg/dL (70-110)
[2023-06-04] MEDS: vancomycin 1,000 MG SDV 1000 MG INTRA-ARTI (09:07)
--- NOTE | 2023-06-04 09:36 | W.PM.BPON ---
Date of Procedure: 06/04/2023 Surgeon: Javier Aguilera DO Communications Attendant(s): Frank Aguilera PA-C Procedure(s) performed: Right total knee arthroplasty?Jignesh robotic assisted Findings of the procedure(s): Right knee tricompartmental arthritic changes noted Estimated blood loss: 25 mL Specimen(s) removed: Tibia and femur bone cuts removed not sent for pathology Post-operative diagnosis: Right knee degenerative joint disease
--- NOTE | 2023-06-04 09:37 | P.OP_ITS ---
Operative Report Date of procedure: June 04, 2023 Surgeon: Javier Aguilera DO [place] Sifter And Miller: Frank Aguilera PA-C PA was necessary for assistance in this case with retraction and protection of neurovascular structures as well as assist with implantation and assist in wound closure. Procedure: Preoperative diagnosis: Right knee degenerative joint disease post-op diagnosis: Same Procedure done: Right total knee arthroplasty, cemented?robotic assisted Jignesh Implants: Deepak triathlon size 6 femur CR cemented?right Deepak triathlon size?6 tibia universal baseplate cemented Deepak triathlon asymmetric patella size 32 mm [place] triathlon polyethylene 10mm Surgeon: Javier Aguilera DO Estimated blood loss: 25 mL Tourniquet 73minutes IV fluids: 1200 mL Urine output: 200mL Complications: None Condition: stable Disposition: floor Brief History: Patient is a 72-year-old female with with chronic?right knee degenerative joint disease.? Patient has been worked up in the outpatient setting in the orthopedic office at this point time through shared decision making given his [id number] arthritis as well as failed conservative treatment, and pt would like to proceed with a?right total knee arthroplasty.? Through shared decision making elected to proceed with surgical intervention for?right total knee arthroplasty.? We talked about continued conservative treatment and surgical intervention as far as the?risk benefits complications alternatives surgical and nonsurgical treatment options.? At this point time understanding patient?risks with surgery he agrees to proceed with surgical intervention.? Once again??risk with surgery include but are not limited to make it better make it worse blood clot, heart attack, stroke, on the table, infection, injury to nerves or vessels, persistent pain, arthrofibrosis, implant failure.? Understanding these?risks patient agrees to proceed with surgical intervention consent was obtained in the office.? All questions answered. Procedure: Patient was seen and evaluated in the preoperative holding area.? Consent was?reviewed and signed with patient with plan for?right total knee arthroplasty.? All questions answered.? Correct extremity marked.? Patient seen and evaluated by the anesthesia department and once cleared for surgery was taken back to the operative suite.? Patient was placed into a supine position on the OR table.? All bony prominences were well-padded.? Patient was appropriately secured to the bed.? Patient underwent anesthesia per the anesthesia department.? Patient?received spinal anesthesia and? Moe catheter was placed.? A nonsterile tourniquet was applied to the?right thigh.? At this point in time a final timeout performed.? Patient?received appropriate preoperative antibiotics and TXA. Next the?right lower extremity was then prepped and draped in standard orthopedic fashion. Esmarch tourniquet was used exsanguinate the?right lower extremity.? Tourniquet was insufflated to 250 mmHg. A standard anterior incision was made over midline of the knee.? Sharp scalpel excision through skin and subcutaneous tissue full-thickness skin flaps were made.? Fascia was elevated off of the extensor?retinaculum was stable with medial parapatellar arthrotomy was then made.? The performed standard sequential?releases..? Immediately on entry into the joint patient was found to have severe eburnated bone and tricompartmental arthritic changes noted.? With significant osteophyte formation.? Next the the patella was then stuffed and the knee was then flexed.?? January was placed superiorly around the anterior aspect of the femur this was freed of synovium and I subsequently then placed by 2 femur pins to establish my femur arrays for the [employer]?robot.? These were then placed bicortically and? femur array was then appropriately secured with appropriate visualization.? Next attention was turned towards the tibial?rays.? These were then drilled sequentially bicortically in parallel fashion and intraincisional.? I then placed my guide as well as my tibial array on in place.? This was appropriately secured and had excellent visualization with the Jignesh?robot.? Next the tibial checkpoint as well as femur checkpoint were then placed.? At this point time I then subsequently established my head center as well as my medial lateral malleoli as well as my checkpoints.? Next utilizing standard Jignesh technology I then mapped out the appropriate points and confirmation points around the femur as well as the tibia in standard fashion.? Once this was then done I then?removed all osteophytes in preparation for dynamic testing.? All osteophytes were?removed as well as I?removed the ACL and the PCL was excised due to its significant tearing and degeneration noted.? At this point time the knee was brought into full extension and we performed our standard evaluation of our gap balancing stressing his ligaments and extension as well as flexion appropriate adjustments were made to have appropriate gap balancing in both flexion and extension.? This plan for final counts.? We get a preoperative plan evaluating our implants which was a size 6 femur and a size 6 tibia.? Next we brought in the [employer]?robot and sequentially made our femur cuts.? All excess bony cuts were then?removed.? Finally we made our tibial cut.? Once this was done a standard PCL?retractor was then placed into this position I excised the medial and lateral meniscus.? The tibial cut was then subsequently?removed all excess bony debris was?removed.? I then utilized a lamina ammunition supervisor and?remove the posterior osteophytes.? At this point time sized the tibia and confirmed this was a size 6.? I utilized our blunt probe to establish?rotation of tibial implant.? Once this was done I then placed my tibia size 6 trial in appropriate position and then subsequently placed tibial pins to hold this into place placed a size 9 mm poly as well as a size 6 femur which was appropriately impacted in place knee was then subsequently brought into extension. Trials were then assessed, this was stable with varus valgus stress in extension as well as flexion.? Patient was still found to be significantly t ight medially. At this point in time this was tight in both flexion and extension in order for appropriate gap balancing I utilized an 18-gauge spinal needle to fenestrate the MCL to appropriately loosen the MCL. I then subsequently retrialed with a 10 mm poly and this was found to have appropriate Stability of both varus and valgus stress. Patient's MCL was competent and did have an endpoint but still had a subtle plan given the fact that I have performed a controlled release of this plan was to place patient into a hinged knee brace for his early postoperative course while he continues to heal. And to help with his therapy. At this point the 10 mm was found to have excellent gaps and more balanced in both flexion and extension. At this point I was satisfied with these implants these were then verified and opened on the back table size 6 tibia, size 6 femur,? size 10 mm polythickness.? We did confirm appropriate gap balancing and stresses as well as alignment utilizing? Jignesh and were satisfied with this plan.? ?At this point time with my trials in place I then towel clip the patella everted this made appropriate measurements subsequently utilizing freehand technique performed by patellar?resurfacing this was confirmed to be appropriate?resection and subsequently sized to be a 32 mm asymmetric.? My drill peg guides were then clamped and appropriate position and appropriate position in the patella for appropriate tracking and parallel with the joint.? Pegs were drilled trial implant was placed and the knee was then subsequently?ranged and found to have excellent patellar tracking.? Femur pegs were then drilled.? Satisfied with our tibial placement?rotation I then utilized the keel punch and prepped the tibia.? At this point time all of our trial implants were?removed.? All checkpoints as well as guidepins and arrays were?removed and appropriate counts made.? The wound bed? was thoroughly irrigated and dried and prepped for cementation.? Cement was mixed on the back table.? Once cement was?ready this was then covered onto the tibia and the tibial baseplate was then impacted and all excess cement was?removed.? Next the polyethylene was then impacted into place on the tibial baseplate.? Next cement was placed onto the femur as well as under the femur implants and impacted in to place and all excess cement was extruded and?removed.? Knee was taken into full extension? to clear all excess cement was?removed.? Warm saline was placed over the joint.? I then towel clip patella and dried for cementation. cemented the patella into place.? This was all clamped and the cement was allowed to cure.? Thorough irrigation performed with pulse lavage.? I then placed my periarticular injection while the cement was curing.? Once cured the knee was taken through?range of motion and had excellent stability and gaps were balanced in flexion and extension.? Tourniquet was then deflated. hemostasis satisfactory with electrocautery.? Next I then subsequently closed the capsule with Ethibond suture as well as a?running strata fix suture.? Knee was then taken through?range of motion 30 times.? Next the skin was then closed in layered fashion of?running stratifix sutures of deep and subcutenous tissue and skin.? ?closed in flexion and Prineo glue was then placed over the incision this allowed to cure.? Incision was covered with Silverlon, with ABDs soft?roll and Rian wrap.? Patient was then awakened from anesthesia and taken to PACU in stable condition. Disposition: Patient taken to PACU in stable condition will be admitted to the floor for pain control PT/OT weight-bear as tolerated?right lower extremity dressing changes as needed, DVT prophylaxis. We will plan to have him utilize his hinged knee brace for the first 4 weeks postoperatively. Patient can continue to be weightbearing as tolerated as well as range of motion as tolerated. Pain control. Patient will?receive appropriate postoperative antibiotics. patient will be seen today by the internal medicine team for medical management.? Patient will follow up with the office in 2 weeks.? Patient understands agrees with current plan.? All questions answered.
--- NOTE | 2023-06-04 09:47 | XR_ITS ---
WS: [id number] EXAMINATION: XR knee RT 3V* [id number] REASON FOR EXAM: postop TKA R COMPARISON: 01/15/2023 ORDER DATE: 06/04/2023 9:47 AM FINDINGS: There has been recent total knee replacement at the knee joint. There is satisfactory prosthesis posi tioning of the total knee replacement components. There are recent perioperative soft tissue changes. These include intra-articular gas and soft tissue edema. IMPRESSION:: Stable appearance of the recent total knee arthroplasty. There are postoperative soft tissue changes.
--- NOTE | 2023-06-04 10:17 | P.PCN_ITS ---
PACU note Narrative: Patient is a 72-year-old male who just underwent a right total knee arthroplasty. pt transferred to PACU in stable condition. Dressing is dry. Right knee dressing is dry and in place. His foot and toes are warm and well- perfused with normal cap refill under 2 seconds. patient somnolent and difficult to arouse due to anesthesia. Unable to perform further assessment due to anesthesia. We will reassess pt on the floor later today. Exam: unarousable Disposition: admitted
--- NOTE | 2023-06-04 10:20 | ANE.PACU2 ---
Inpatient post-anesthesia follow up: Airway intact: Yes Vital signs: Temperature 98.1 F Pulse Rate 77 Respiratory Rate 16 Blood Pressure 128/70 Pulse Oximetry 96 Oxygen Delivery Me thod Nasal Cannula Oxygen Flow Rate 2 Fraction of Inspir ed Oxygen Hydration adequate: Yes Nausea and vomiting: No Pain level: 1 Mental status: Baseline
--- NOTE | 2023-06-04 10:36 | P.CONIM_ITS ---
Providers/Reason For Consult Consulting Physician/Specialty*: gibran Blevinsist Reason for Consult*: Medical management Requesting Physician: Dr. Aguilera Attending Physician: Javier Aguilera DO Primary Care Provider: Hannah Suarez MD History of Present Illness History of Present Illness Aj Sharp is a 72 year old male who presented today for an elective right total knee arthroplasty per Dr. Aguilera. He has a past history of diabetes, hypertension, hyperlipidemia and coronary disease. There were no complications with his surgery. He is in the recovery unit, and can answer a few questions for me. He reports no chest discomfort in the last month. His pain is currently under control. He has no other concerns. Review of Systems General: Reports: 10 or more systems reviewed and unremarkable except in HPI and below Card: Denies: chest pain Resp: Denies: dyspnea Medications/Allergies Home Medications Medication Instructions Recorded Confirmed Last Taken Type [place] AFO #1 ea 08/16/20 04/19/23 Unknown Rx albuterol sulfate 2.5 mg/3 mL 2.5 mg inhalation Q6H 08/16/20 06/01/23 03/21/23 History (0.083 %) solution for nebulization alogliptin 25 mg tablet 25 mg PO DAILY 08/16/20 06/01/23 06/01/23 History ascorbic acid (vitamin C) 1,000 mg 500 mg PO BID 08/16/20 06/01/23 05/28/23 History tablet cholecalciferol (vitamin D3) 125 125 mcg PO DAILY 08/16/20 06/01/23 05/28/23 Hi story mcg (5,000 unit) capsule ASO right ankle #1 ea 11/29/20 04/19/23 Unknown Rx AFO right lower extremity #1 ea 01/17/21 04/19/23 Unknown Rx omega-3 fatty acids 1,000 mg 1,000 mg PO BID 02/01/21 06/01/23 05/28/23 History capsule (Fish Oil Concentrate) zinc acetate 50 mg (zinc) capsule 50 mg PO DAILY 02/01/21 06/01/23 05/28/23 History (Galzin) B-complex with vitamin C 1 tab PO DAILY 05/17/21 06/01/23 05/28/23 History aspirin 81 mg tablet,delayed 81 mg PO DAILY 09/06/01/23 05/30/23 History release (Adult Aspirin Regimen) glipizide 10 mg tablet 10 mg PO BID 05/17/21 06/01/23 06/01/23 History metformin 1,000 mg tablet 1,000 mg PO BID 05/17/21 06/01/23 06/01/23 History multivitamin 1 tab PO DAILY 05/17/21 06/01/23 05/28/23 History rosuvastatin 40 mg tablet 40 mg PO DAILY #90 tabs 03/14/22 06/01/23 06/01/23 Rx acetaminophen 500 mg capsule 500 mg PO BID@08,16 09/14/22 06/01/23 06/01/23 History lisinopril 40 mg tablet 20 mg PO BID #90 tabs 02/15/23 06/01/23 06/01/23 Rx hydrocodone 5 mg-acetaminophen 325 1 tab PO BID 05/25/23 06/01/23 06/01/23 History mg tablet melatonin 5 mg capsule 30 mg PO BEDTIME 05/25/23 06/01/23 04/19/23 History amoxicillin 500 mg capsule 500 mg PO 3XD 06/01/23 06/01/23 06/01/23 History carvedilol 25 mg tablet 25 mg PO BID 90 days #180 tabs 06/01/23 06/01/23 06/01/23 Rx Allergies Allergy/AdvReac Type Severity Reaction Status Date / Time oxycodone Allergy unknown Verified 05/25/23 09:40 PFSH Acute PFSH: Medical History ADHD Anxiety Basal cell carcinoma Diabetes Dysthymic disorder Essential hypertension Hiatal hernia Hyperlipidemia Hypertension Impaired hearing Impotence 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 Low back pain PTSD (post-traumatic stress disorder) Tinnitus Surgical History History of laminectomy History of PTCA History of repair of left rotator cuff History of total knee arthroplasty Family History Mother COPD (chronic obstructive pulmonary disease) Lung disease Father Heart attack CAD (coronary artery disease) Heart aneurysm Sister Cerebral hemorrhage Denies family history of Diabetes Clotting disorder Dementia Chronic kidney disease (CKD) Suicide Anesthesia complication Bleeding disorder Cancer Stroke Social History Smoking and tobacco status: never smoked Second hand smoke exposure: No Alcohol intake: never Substance/Drug Use: never Vitals/I&O/Wt Last Vital Signs Temp 97.4 F L 06/04/23 10:21 Pulse 70 06/04/23 10:21 Resp 18 06/04/23 10:21 BP 127/63 06/04/23 10:21 Pulse Ox 96 06/04/23 10:21 O2 Del Method Nasal Cannula 06/04/23 10:21 O2 Flow Rate 3 06/04/23 10:17 06/03/23 06/04/23 06/04/23 22:59 06:59 14:59 Intake Total 100 / 100 710 / 710 Output Total 525 / 525 Balance 100 / 100 185 / 185 Weight last 48 hrs Weight 99.79 kg Physical Exam Narrative: General exam is no apparent distress, alert and oriented HEENT: Atraumatic normocephalic. Oropharynx clear Neck is supple without lymphadenopathy or thyromegaly Cardiovascular regular rate and rhythm without murmur Lungs clear no wheezing or crackles Abdomen soft nontender. Positive bowel sounds. No obvious organomegaly exam is deferred Extremities no cyanosis clubbing or edema, cap refill brisk. Dressing present r ight knee Skin no rash Neuro no focal deficits Urinary Catheter Management: Moe: Cath Placed During This Visit: yes Urinary Catheter Date of Insertion: 06/04/23 Urinary Catheter Time of Insertion: 07:20 Data Other Labs: Previous laboratory reviewed from May 25 demonstrating a normal hemoglobin, white count, platelet count. CMP normal with exception of glucose. Urinalysis negative. Previous x-rays reviewed and knee MRI demonstrating DJD/chondromalacia A&P Assessment and plan (1) Right knee DJD: Patient underwent right total knee arthroplasty today. Postoperative care per orthopedics No significant blood loss during surgery CBC, to monitor for postoperative anemia tomorrow as well as BMP Eliquis for DVT prophylaxis (2) T2DM (type 2 diabetes mellitus): Sliding scale insulin Consistent carb diet Hold glipizide Qualifiers: Diabetes mellitus complication status: with hyperglycemia Diabetes mellitus chcf insulin use: without chcf use Qualified Code(s): E11.65 - Type 2 diabetes mellitus with hyperglycemia (3) Essential hypertension: Continue home medications Resume his lisinopril, carvedilol (4) Hyperlipidemia: Continue statin Qualifiers: Hyperlipidemia type: mixed hyperlipidemia Qualified Code(s): E78.2 - Mixed hyperlipidemia (5) Atherosclerosis of coronary artery of [place] heart without angina pectoris: Continue statin, aspirin, beta-maylin. Qualifiers: Coronary Disease-Associated Artery/Lesion type: [place] artery Qualified Code(s): I25.10 - Atherosclerotic heart disease of [place] coronary artery without angina pectoris Plan Other medical problems as outlined in past medical history Thank you for this consultation Consult Attestations Medical Necessity Statement: As per primary Diagnoses Right knee DJD M17.11 T2DM (type 2 diabetes mellitus) E11.65 Diabetes mellitus complication status: with hyperglycemia Diabetes mellitus chcf insulin use: without chcf use Essential hypertension I10 Hyperlipidemia E78.2 Hyperlipidemia type: mixed hyperlipidemia Atherosclerosis of coronary artery of [place] heart without angina pectoris I25.10 Coronary Disease-Associated Artery/Lesion type: [place] artery Time Spent (min) 38
[2023-06-04] MEDS: lactated ringers 1,000 ML 100 ML IV ×2 (12:36→22:45)
[2023-06-04] MEDS: insulin lispro 100 unit/1 mL SUBCUT ×3 (14:14→22:16)
[2023-06-04] MEDS: chlorhexidine gluconate 0.12% Btl 473 mL 30 ML MUCOUS MEM ×3 (14:18→20:30)
[2023-06-04] MEDS: HYDROcodone-acetaminophen 5-325 mg Tablet 1 TAB PO ×2 (15:29→22:16)
[2023-06-04 16:28] LABS: Glucose Point of Care 192 mg/dL (70-110)
[2023-06-04] MEDS: carvedilol 25 mg Tablet PO (18:00)
[2023-06-04] MEDS: calcium carb-vit d 600mg/400unit 1 Tablet 1 EACH PO (18:00)
[2023-06-04] MEDS: lisinopril 20 mg Tablet PO (18:00)
[2023-06-04] MEDS: iron polysaccharide complex 150 mg Capsule PO (18:00)
[2023-06-04] MEDS: docusate sodium 100 mg Capsule PO (18:00)
[2023-06-04] MEDS: ketorolac 30 mg/mL INJ 15 MG IVP (18:10)
[2023-06-04] MEDS: TRAMadol 50 mg Tablet PO (18:11)
[2023-06-04] MEDS: mupirocin oint 22 gm 1 APPLIC NASAL (18:11)
[2023-06-04 22:05] LABS: Glucose Point of Care 221 mg/dL (70-110)
[2023-06-05] VITALS: BP 107/54; PULSE 75; RESP 17; TEMP 37; O2SAT 92
[2023-06-05] MEDS: HYDROcodone-acetaminophen 5-325 mg Tablet 1 TAB PO ×3 (04:29→12:47)
[2023-06-05] MEDS: TRAMadol 50 mg Tablet PO (04:59)
[2023-06-05 05:00] VITALS: BP 115/61; PULSE 66; RESP 17; TEMP 36.8; O2SAT 94
[2023-06-05 05:24] LABS: Basophils % 0.3 %; Eosinophils % 0.3 %; Hematocrit 39.3 % (37-53); Lymphocytes # 1.4 10^3/uL (0.8-4.8); Lymphocytes % 12.3 %; Mean Corpuscular HGB Conc 33.3 g/dL (30-55); Mean Corpuscular Hemoglobin 32.7 pg (27-33); Mean Platelet Volume 10.2 fL (7.4-10.4); Monocytes # 1.3 10^3/uL (0.2-0.9); Monocytes % 11.4 %; Neutrophils # 8.58 10^3/uL (1.8-7.7); Neutrophils % 75.3 %; Nucleated Red Blood Cells % 0 %; Platelet Count 174 10^3/cmm (157-399); Red Blood Count 4.01 10^6/uL (3.85-5.65); Red Cell Distribution Width 13.2 % (12.1-15.1); White Blood Count 11.39 10^3/uL (3.29-11.43)
[2023-06-05 05:43] LABS: Anion Gap 14.4 (5-19); Blood Urea Nitrogen 17 mg/dL (8-23); Calcium 8.8 mg/dL (8.5-10.5); Carbon Dioxide 26 mmol/L (22-29); Chloride 104 mmol/L (98-107); Glucose 166 mg/dL (65-115); Osmolality Calculated 295 mOsm/kg (285-295); Potassium 4.4 mmol/L (3.5-5.1); Sodium 140 mmol/L (136-145)
[2023-06-05] MEDS: ceFAZolin 2,000 MG in sodium chloride 0.9% (plus) 50 ML 100 MG IV (06:25)
[2023-06-05 06:50] LABS: Glucose Point of Care 149 mg/dL (70-110)
--- NOTE | 2023-06-05 07:32 | PC.PHAR ---
pt is with physical therapy
--- NOTE | 2023-06-05 08:00 | P.PN_ITS ---
Subjective Subjective: Reports he has some pain this morning. Otherwise doing okay. No other concerns. Medications: Reviewed: Yes Vitals/I&O/Wt Last Vital Signs Temp 98.3 F 06/05/23 05:00 Pulse 66 06/05/23 05:00 Resp 17 06/05/23 05:00 BP 115/61 06/05/23 05:00 Pulse Ox 94 06/05/23 05:00 O2 Del Method Room Air 06/05/23 05:00 O2 Flow Rate 2 06/04/23 12:30 06/04/23 06/05/23 06/05/23 22:59 06:59 14:59 Intake Total 1615 / 3331.667 50 / 3381.667 50 / 50 Output Total 1375 / 1900 Balance 240 / 1431.667 50 / 1481.667 50 / 50 Weight last 48 hrs Weight 99.79 kg Physical Exam Narrative: General exam is no apparent distress Neck is supple without lymphadenopathy or thyromegaly Cardiovascular regular rate and rhythm without murmur Lungs clear no wheezing or crackles Abdomen soft nontender. Positive bowel sounds. No obvious organomegaly Extremities no cyanosis clubbing or edema, cap refill brisk. Dressing present right knee. Can dorsiflex without difficulty. Urinary Catheter Management: Moe: Cath Placed During This Visit: yes, but has since been removed by the nurse Reason for Continuing Indwelling Catheter: Decision to DC Catheter Urinary Catheter Date of Insertion: 06/04/23 Urinary Catheter Time of Insertion: 07:20 Date Urinary Catheter Removed: 06/04/23 Time Urinary Catheter Discontinued: 18:58 Data 06/05/23 05:07 06/05/23 05:07 A&P Assessment and plan (1) Right knee DJD: Patient underwent right total knee arthroplasty yesterday, he is postoperative day #1 Postoperative care per orthopedics No significant blood loss during surgery. Hemoglobin today on follow-up is acceptable Continue Eliquis for DVT prophylaxis (2) T2DM (type 2 diabetes mellitus): Sliding scale insulin Consistent carb diet Hold glipizide while in the hospital. Resume home meds at discharge. Qualifiers: Diabetes mellitus retirement insulin use: without retirement use Diabetes mellitus complication status: with hyperglycemia Qualified Code(s): E11.65 - Type 2 diabetes mellitus with hyperglycemia (3) Essential hypertension: Continue lisinopril, carvedilol (4) Hyperlipidemia: Continue statin Qualifiers: Hyperlipidemia type: mixed hyperlipidemia Qualified Code(s): E78.2 - Mixed hyperlipidemia (5) Atherosclerosis of coronary artery of [place] heart without angina pectoris: Continue statin, aspirin, beta-maylin. Qualifiers: Coronary Disease-Associated Artery/Lesion type: [place] artery Qualified Code(s): I25.10 - Atherosclerotic heart disease of [place] coronary artery without angina pectoris Plan Other medical problems as outlined in past medical history Thank you for this consultation Appears stable today. No medical concerns. Can be discharged if okay from orthopedic standpoint following surgery. 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
[2023-06-05 08:32] VITALS: BP 133/69; PULSE 75; RESP 16; TEMP 36.7; O2SAT 96
[2023-06-05] MEDS: insulin lispro 100 unit/1 mL SUBCUT ×2 (08:45→12:13)
[2023-06-05] MEDS: chlorhexidine gluconate 0.12% Btl 473 mL 30 ML MUCOUS MEM ×2 (08:46→12:13)
[2023-06-05] MEDS: ketorolac 30 mg/mL INJ 15 MG IVP (08:47)
[2023-06-05] MEDS: lisinopril 20 mg Tablet PO (08:48)
[2023-06-05] MEDS: multivitamin therapeutic Tablet 1 TAB PO (08:48)
[2023-06-05] MEDS: aspirin 81 mg EC Tablet PO (08:48)
[2023-06-05] MEDS: carvedilol 25 mg Tablet PO (08:48)
[2023-06-05] MEDS: apixaban 5 mg Tablet 2.5 MG PO (08:48)
[2023-06-05] MEDS: atorvastatin 40 mg Tablet 80 MG PO (08:48)
[2023-06-05] MEDS: iron polysaccharide complex 150 mg Capsule PO (08:48)
[2023-06-05] MEDS: calcium carb-vit d 600mg/400unit 1 Tablet 1 EACH PO (08:49)
[2023-06-05] MEDS: mupirocin oint 22 gm 1 APPLIC NASAL (08:49)
[2023-06-05] MEDS: docusate sodium 100 mg Capsule PO (08:49)
[2023-06-05 11:47] LABS: Glucose Point of Care 226 mg/dL (70-110)
[2023-06-05 12:00] VITALS: BP 135/68; PULSE 64; RESP 17; TEMP 36.6; O2SAT 96
[2023-06-05] MEDS: lactated ringers 1,000 ML 100 ML IV (12:14)
--- NOTE | 2023-06-05 13:07 | PM.PN ---
Subjective Subjective: Patient is a 72-year-old male that is 1 day post right total knee arthroplasty. No acute events overnight. Patient is doing well and he got up and walk with physical therapy yesterday and today. His pain is controlled. Vitals/I&O/Wt Last Vital Signs Temp 97.8 F 06/05/23 12:00 Pulse 64 06/05/23 12:00 Resp 17 06/05/23 12:00 BP 135/68 06/05/23 12:00 Pulse Ox 96 06/05/23 12:00 O2 Del Method Room Air 06/05/23 12:00 O2 Flow Rate 2 06/04/23 12:30 06/04/23 06/05/23 06/05/23 22:59 06:59 14:59 Intake Total 1615 / 3331.667 50 / 3381.667 1650 / 1650 Output Total 1375 / 1900 Balance 240 / 1431.667 50 / 5972.480 3660 / 1650 Weight last 48 hrs Weight 220 lb Physical Exam Const: COMMON NORMALS: no acute distress GENERAL APPEARANCE: cooperative and comfortable Resp: COMMON NORMALS: normal respiratory effort EFFORT & INSPECTION: Yes able to speak in complete sentences and No respiratory distress Extremity: NARRATIVE EXTREMITY EXAM: Right knee?dressing and brace is on and intact. Patient is able to straight leg raise, plantarflex dorsiflex. He has normal cap refill under 2 seconds toes are warm and well-perfused. Skin: GENERAL SKIN EXAM: dry skin Urinary Catheter Management: Moe: Cath Placed During This Visit: yes, but has since been removed by the nurse Reason for Continuing Indwelling Catheter: Decision to DC Catheter Urinary Catheter Date of Insertion: 06/04/23 Urinary Catheter Time of Insertion: 07:20 Date Urinary Catheter Removed: 06/04/23 Time Urinary Catheter Discontinued: 18:58 Data 06/05/23 05:07 06/05/23 05:07 A&P Assessment and plan (1) Status post total right knee replacement: Plan Plan: -Imaging and Labs reviewed -Hospitalist on board for medical management. -Weightbearing as tolerated -Pain control -Physical Therapy -Eliquis BID for post op blood clot prevention -Patient is cleared for discharge from an orthopedic standpoint. He will go home on Eliquis twice daily and pain medication. He has been set up with physical therapy. Attestations Medical Necessity Statement*: Ongoing care for right total knee arthroplasty Coding Level of Care Code Acute Code for Chg Fwd Diagnoses Status post total right knee replacement Z96.651
--- NOTE | 2023-06-05 13:15 | PM.DCS ---
Discharge Providers Date of Admission: 06/04/23 10:10 Date of Discharge: June 05, 2023 Attending Provider at Admission: Javier Aguilera DO Attending Provider at Discharge: Javier Aguilera DO Consults: Hospitalist consulted for medical management Primary Care Provider: Hannah Suarez MD Diagnoses at Discharge Discharge Diagnosis (1) Status post total right knee replacement: Status: Acute Reason for Visit Reason for Visit: M17.11 Brief History: Right total knee arthroplasty Jignesh robotic assisted Hospital Course Hospital Course Patient presented to the preoperative holding area with plan for right total knee arthroplasty after patient has been worked up in the outpatient setting for failed conservative treatment of right knee degenerative joint disease.? Once cleared by anesthesia for surgery patient subsequently was taken back to the operative suite? underwent? anesthesia per anesthesia department and then subsequently underwent a right total knee arthroplasty.? Procedure was performed without any complications, we did have to perform an extensive medial release for balancing at this point time during his early, Postoperatively would recommend a hinged brace with weightbearing as tolerated but does not need knee brace for working on knee range of motion. Patient was taken to PACU in stable condition patient? recovered well in PACU and then was admitted to the floor postoperatively internal medicine was consulted and on board for medical management and assistance with care.? Patient received appropriate PT/OT, postoperative antibiotics, postoperative TXA, pain control, postoperative DVT prophylaxis.? Elevation and ice.? Patient encouraged for knee range of motion allowed weightbearing as tolerated to the operative lower extremity.? Dressing was changed as needed, labs were monitored daily.?? Patient recovered well postoperatively and worked well and progressed well with therapy.? It was determined on postoperative day 1 the patient was stable for discharge from an orthopedic standpoint and medicine.? Patient was comfortable with discharge and plan was discharged home.? Patient received appropriate discharge instructions as well as pain medication and DVT prophylaxis postoperatively.? Given appropriate instructions for? dressing management.? Patient will follow-up with Dr. Aguilera/orthopedics in the office in 2 weeks.? All questions answered.? Understand if there is any issues questions or concerns and contact the office. Physical Exam Const: COMMON NORMALS: no acute distress GENERAL APPEARANCE: cooperative and comfortable Resp: COMMON NORMALS: normal respiratory effort EFFORT & INSPECTION: Yes able to speak in complete sentences and No respiratory distress Extremity: NARRATIVE EXTREMITY EXAM: Right knee?dressing and brace is on and intact. Patient is able to straight leg raise, plantarflex dorsiflex. He has normal cap refill under 2 seconds toes are warm and well-perfused. Skin: GENERAL SKIN EXAM: dry skin Urinary Catheter Management: Moe: Cath Placed During This Visit: yes, but has since been removed by the nurse Reason for Continuing Indwelling Catheter: Decision to DC Catheter Urinary Catheter Date of Insertion: 06/04/23 Urinary Catheter Time of Insertion: 07:20 Date Urinary Catheter Removed: 06/04/23 Time Urinary Catheter Discontinued: 18:58 Discharge Data Studies Completed and Pending Completed Studies During Hospitalization Category Date Time Status XR knee RT 3V* [id number] Routine Exams 06/04/23 09:47 Completed Laboratory Results WBC 11.39 10^3/uL (3.29-11.43) 06/05/23 05:07 RBC 4.01 10^6/uL (3.85-5.65) 06/05/23 05:07 Hgb 13.10 g/dL (11.27-16.99) 06/05/23 05:07 Hct 39.3 % (37-53) 06/05/23 05:07 MCV 98.0 fl (82-101) 06/05/23 05:07 MCH 32.7 pg (27-33) 06/05/23 05:07 MCHC 33.3 g/dL (30-55) 06/05/23 05:07 RDW 13.2 % (12.1-15.1) 06/05/23 05:07 Plt Count 174 10^3/cmm (157-399) 06/05/23 05:07 MPV 10.2 fL (7.4-10.4) 06/05/23 05:07 Neut % (Auto) 75.3 % 06/05/23 05:07 Lymph % (Auto) 12.3 % 06/05/23 05:07 Blount % (Auto) 11.4 % 06/05/23 05:07 Eos % (Auto) 0.3 % 06/05/23 05:07 Baso % (Auto) 0.3 % 06/05/23 05:07 Neut # (Auto) 8.58 10^3/uL (1.8-7.7) H 06/05/23 05:07 Lymph # (Auto) 1.4 10^3/uL (0.8-4.8) 06/05/23 05:07 Blount # (Auto) 1.3 10^3/uL (0.2-0.9) H 06/05/23 05:07 Eos # (Auto) 0.0 10^3/uL (0.0-0.8) 06/05/23 05:07 Baso # (Auto) 0.0 10^3/uL (0.0-0.1) 06/05/23 05:07 Nucleated RBC % (auto) 0 % 06/05/23 05:07 Nucleated RBCs # 0.0 /100WBC 06/05/23 05:07 Sodium 140 mmol/L (136-145) 06/05/23 05:07 Potassium 4.4 mmol/L (3.5-5.1) 06/05/23 05:07 Chloride 104 mmol/L (98-107) 06/05/23 05:07 Carbon Dioxide 26 mmol/L (22-29) 06/05/23 05:07 Anion Gap 14.4 (5-19) 06/05/23 05:07 BUN 17 mg/dL (8-23) 06/05/23 05:07 Creatinine 0.8 mg/dL (0.7-1.2) 06/05/23 05:07 GFR Calculation Not Reportable 06/05/23 05:07 Glucose 166 mg/dL (65-115) H 06/05/23 05:07 POC Glucose 226 mg/dL (70-110) H 06/05/23 11:25 Calculated Osmolality 295 mOsm/kg (285-295) 06/05/23 05:07 Calcium 8.8 mg/dL (8.5-10.5) 06/05/23 05:07 Blood Type A Positive 06/04/23 06:30 Rho(D) Type Positive 06/04/23 06:30 Antibody Screen Negative 06/04/23 06:30 Imaging Xray Ortho: Radiologist's impression: Postoperative x-rays of the right knee taken in PACU demonstrate a stable right total knee arthroplasty with no evidence of periprosthetic fracture dislocation appropriate alignment and positioning noted. Vitals Last Vital Signs Temp 97.8 F 06/05/23 14:37 Pulse 64 06/05/23 14:37 Resp 17 06/05/23 14:37 BP 135/68 06/05/23 14:37 Pulse Ox 96 06/05/23 14:37 O2 Del Method Room Air 06/05/23 12:00 O2 Flow Rate 2 06/04/23 12:30 Discharge Plan Discharge Patient Disposition: Home Condition: Stable Prescriptions: New Eliquis 2.5 mg tablet 2.5 mg PO BID 14 Days Qty: 28 0RF hydrocodone-acetaminophen 7.5-325 mg tablet 1 tab PO Q6H PRN (Reason: pain postop) 7 Days Qty: 28 0RF Continued albuterol sulfate 2.5 mg /3 mL (0.083 %) solution for nebulization 2.5 mg inhalation Q6H PRN (Reason: Shortness Of Breath) alogliptin 25 mg tablet 25 mg PO QAM ascorbic acid (vitamin C) 1,000 mg tablet 1,000 mg PO QAM glipizide 10 mg tablet 10 mg PO BID metformin 1,000 mg tablet 1,000 mg PO BID melatonin 5 mg capsule 30 mg PO BEDTIME PRN (Reason: Sleep) Galzin 50 mg (zinc) capsule 50 mg PO DAILY multivitamin Tablet 1 tab PO QAM aspirin [Adult Aspirin Regimen] 81 mg tablet,delayed release (DR/EC) 81 mg PO DAILY PRN (Reason: chest pains) carvedilol 25 mg tablet 25 mg PO BID 90 Days Qty: 180 3RF Rx Instructions: must administer with a meal/food omega-3 fatty acids 1,000 mg Capsule 2,000 mg PO BID tizanidine 4 mg tablet 4 mg PO BEDTIME PRN (Reason: Sleep) DHEA 25 mg Tablet 25 mg PO QAM lisinopril 20 mg Tablet 10 mg PO BID vitamin B complex Tablet 1 tab PO DAILY testosterone cypionate 200 mg/mL oil 300 mg IM .EVERY 2 WEEKS Rx Instructions: on the and 15 Crestor 20 mg Tablet 20 mg PO QPM Vitamin D3 50 mcg (2,000 unit) Tablet 100 mcg PO QAM magnesium oxide 400 mg magnesium Tablet 400 mg PO BEDTIME Discontinued hydrocodone-acetaminophen 5-325 mg tablet 1 tab PO BID ibuprofen 800 mg Tablet 800 mg PO BID PRN (Reason: Pain) acetaminophen [Tylenol Ex Str Rapid Release] 500 mg Tablet 1,000 mg PO BID No Action (DME) Mely [facility] See Rx Instructions .Route .MEDSUPPLY Qty: 1 0RF Rx Instructions: As directed (DME) ASO right ankle See Rx Instructions .Route .MEDSUPPLY Qty: 1 0RF Rx Instructions: As directed by PT (DME) AFO right lower extremity See Rx Instructions .Route .MEDSUPPLY Qty: 1 0RF Rx Instructions: As directed by [facility] Discharge Orders: Discharge Order (Routine); Ordered 06/05/23 Ordered By: Javier Aguilera Other Ambulatory Orders: DME: Walker (Order) Location: None Selected Ordered By: Javier Aguilera Physical Therapy Eval and Treat Outpatient (Order) Timeframe: 3 Days Facility: [facility] - Location: Physical Therapy Ordered By: Javier Aguilera Referrals: [facility] [Outside] Javier Aguilera DO [Physician] - 06/14/23 1:30 pm [facility] [Occupational Therapist] - (We have notified your physician's clinic of the need for a follow-up appointment to be scheduled. If you have not heard from them within the next 2 business days, please call them directly. You may also reach out to our brand manager at [phone] and she can assist you.faxed dc charge FOR APPOINTMENT) Discharge Diet: Advance as tolerated Discharge Activity: Increase activity as tolerated, Limit activity as instructed and Use walker/crutches as instructed Patient Instructions: Hydrocodone/Acetaminophen (By mouth), Apixaban (By mouth), Joint Replacement Surgery (GEN), Total Knee Replacement (GEN), Opioid Safety Activity Restrictions/Additional Instructions: Orthopedic discharge instructions May remove Rian wrap after 3 days Keep incisions clean dry and intact, leave Silverlon bandage dressings on in place for 7 days after that may rinse incisions with warm soapy water pat dry and redress with a dry dressing. Patient may weight-bear as tolerate to the operative extremity with brace on in place May come out of brace to work on knee range of motion Utilize crutches as needed Encourage knee range of motion Ice and elevate as needed for pain and swelling Take pain medication as prescribed Take antinausea medication as needed The prescribed Eliquis twice daily for the next 14 days for blood clot prevention May supplement for pain with ibuprofen [id number] as needed No baths or soaks Follow-up in the orthopedic office in 2 weeks Contact the office for any questions or concerns Discharge Attestations Time Spent in Discharge Care*: less than 30 min Quality Metrics Clinical Quality Measures [ No reported AMI, CVA or VTE this stay] Coding Level of Care Code Acute Code for Chg Fwd Diagnoses Status post total right knee replacement Z96.651
[2023-06-05 14:37] VITALS: BP 135/68; PULSE 64; RESP 17; TEMP 36.6; O2SAT 96
== END 2023-06-05 14:30 | disposition home or self-care (01) ==
LOC: MEDSURG 10:10
PROVIDERS: Admitting Provider Student in an Organized Health Care Education/Training Program; PCP Family Medicine; Visit Provider Student in an Organized Health Care Education/Training Program
PROC: 8E0Y0CZ Robotic Assisted Procedure of Lower Extremity, Open Approach (ICD-10-PCS; CPT 27447; principal; 2023-06-04 07:00)
DX: M17.11 Unilateral primary osteoarthritis, right knee (principal); E11.65 Type 2 diabetes mellitus with hyperglycemia; I10 Essential (primary) hypertension; E78.2 Mixed hyperlipidemia; I25.10 Atherosclerotic heart disease of native coronary artery without angina pectoris; Z79.82 Long term (current) use of aspirin
CPT/HCPCS: 27130; 36415; 36416; 51702; 73562; 80048; 82962; 85025; 86850; 86900; 96372; 97110; 97116; 97161; 97165; C1776; G0378; J0131; J0171; J0690; J1100; J1815; J1885; J2250; J2704; J2795; J3370; J7030; J7120

== ENCOUNTER → 2023-06-19 12:54 | Outpatient (BNVA) | payer OTHER, SELFPAY | PROVIDERS: PCP Family Medicine; Visit Provider Student in an Organized Health Care Education/Training Program | DX: Z96.651 Presence of right artificial knee joint (principal) | CPT/HCPCS: 73560; 73565; 99024 ==

== ENCOUNTER → 2023-07-31 09:36 | Outpatient (BNVA) | payer OTHER, SELFPAY | PROVIDERS: PCP Family Medicine; Visit Provider Student in an Organized Health Care Education/Training Program | DX: Z96.651 Presence of right artificial knee joint (principal) | CPT/HCPCS: 73560; 73565; 99024 ==

== ENCOUNTER → 2023-09-20 12:43 | Outpatient (BNVA) | payer OTHER, SELFPAY | PROVIDERS: PCP Family Medicine; Visit Provider Dermatology | DX: L82.1 Other seborrheic keratosis (principal); L57.0 Actinic keratosis; L81.4 Other melanin hyperpigmentation; L57.8 Other skin changes due to chronic exposure to nonionizing radiation; D22.39 Melanocytic nevi of other parts of face | CPT/HCPCS: 17000; 99203 ==

== ENCOUNTER → 2023-10-29 09:30 | Outpatient (BNVA) | payer OTHER, SELFPAY | PROVIDERS: PCP Family Medicine; Visit Provider Nurse Practitioner Family | DX: I25.10 Atherosclerotic heart disease of native coronary artery without angina pectoris (principal); I10 Essential (primary) hypertension | CPT/HCPCS: 99214 ==

== ENCOUNTER → 2024-01-03 11:14 | Outpatient (BNVA) | payer OTHER, SELFPAY | PROVIDERS: PCP Family Medicine; Visit Provider Dermatology | DX: L82.0 Inflamed seborrheic keratosis (principal); L57.0 Actinic keratosis; L57.8 Other skin changes due to chronic exposure to nonionizing radiation; L81.4 Other melanin hyperpigmentation | CPT/HCPCS: 17000; 17110; 99214 ==

== ENCOUNTER → 2024-01-18 09:41 | Outpatient (BNVA) | payer OTHER, SELFPAY | PROVIDERS: PCP Family Medicine; Visit Provider Student in an Organized Health Care Education/Training Program | DX: Z96.651 Presence of right artificial knee joint (principal) | CPT/HCPCS: 73560; 73565; 99213 ==

== ENCOUNTER → 2024-04-15 11:16 | Outpatient (BNVA) | payer OTHER, SELFPAY | PROVIDERS: PCP Family Medicine; Visit Provider Internal Medicine Cardiovascular Disease | DX: I10 Essential (primary) hypertension (principal); I25.10 Atherosclerotic heart disease of native coronary artery without angina pectoris | CPT/HCPCS: 99214 ==

== ENCOUNTER → 2024-06-05 09:15 | Outpatient (BNVA) | payer OTHER, SELFPAY | PROVIDERS: PCP Family Medicine; Visit Provider Physician Assistant | DX: Z96.651 Presence of right artificial knee joint (principal) | CPT/HCPCS: 73560; 73565; 99213 ==

== ENCOUNTER 2024-06-25 07:36 | Outpatient (CLI) | payer OTHER, SELFPAY ==
--- NOTE | 2024-06-25 07:57 | US_ITS ---
WS: [id number] RIGHT UPPER QUADRANT ULTRASOUND HISTORY: ELEVATED LFT'S COMPARISON: None available. Liver: 17.1 cm in length. Mild hepatomegaly. No mass or bile duct dilatation. Portal Vein: Normal hepatopetal flow with monophasic waveform. Gallbladder: Normally distended gallbladder with no stones or wall thickening. CBD: 0.3 cm Pancreas: Completely obscured by bowel gas. Right kidney: 11.1 cm in length. Normal size kidney. Simple cyst from the upper pole measures 2.0 x 2 .7 x 3.0 cm. Aorta and IVC: Poorly visualized. No ascites. US/US abdomen limited 05192 IMPRESSION: 1. Mild hepatomegaly. 2. Negative gallbladder. 3. Completely obscured pancreas.
== END 2024-06-25 07:37 | disposition home or self-care (01) ==
LOC: RAD 07:37
PROVIDERS: PCP Family Medicine; Visit Provider Family Medicine
DX: N28.1 Cyst of kidney, acquired (principal)
CPT/HCPCS: 76705

== ENCOUNTER → 2024-08-15 08:01 | Outpatient (BNVA) | payer OTHER, SELFPAY | PROVIDERS: PCP Family Medicine; Visit Provider Nurse Practitioner Family | DX: L82.1 Other seborrheic keratosis (principal); L81.4 Other melanin hyperpigmentation; D22.5 Melanocytic nevi of trunk; L57.0 Actinic keratosis | CPT/HCPCS: 17000; 99213 ==

== ENCOUNTER → 2024-10-29 12:23 | Outpatient (BNVA) | payer OTHER, SELFPAY | PROVIDERS: PCP Family Medicine; Visit Provider Internal Medicine Cardiovascular Disease | DX: I10 Essential (primary) hypertension (principal); R74.8 Abnormal levels of other serum enzymes; I25.10 Atherosclerotic heart disease of native coronary artery without angina pectoris; Z95.5 Presence of coronary angioplasty implant and graft; E11.9 Type 2 diabetes mellitus without complications; Z79.84 Long term (current) use of oral hypoglycemic drugs; E78.2 Mixed hyperlipidemia | CPT/HCPCS: 99204 ==

== ENCOUNTER → 2025-01-09 09:15 | Outpatient (BNVA) | payer OTHER, SELFPAY | PROVIDERS: PCP Family Medicine; Visit Provider Nurse Practitioner Family | DX: D18.01 Hemangioma of skin and subcutaneous tissue (principal); L60.3 Nail dystrophy; E13.620 Other specified diabetes mellitus with diabetic dermatitis; L57.8 Other skin changes due to chronic exposure to nonionizing radiation; X32.XXXA Exposure to sunlight, initial encounter; L81.4 Other melanin hyperpigmentation; L57.0 Actinic keratosis | CPT/HCPCS: 17000; 99213 ==

== ENCOUNTER → 2025-04-20 13:04 | Outpatient (BNVA) | payer OTHER, SELFPAY | PROVIDERS: PCP Family Medicine; Visit Provider Nurse Practitioner Family | DX: L82.1 Other seborrheic keratosis (principal); L57.8 Other skin changes due to chronic exposure to nonionizing radiation; X32.XXXA Exposure to sunlight, initial encounter; L81.4 Other melanin hyperpigmentation; L57.0 Actinic keratosis | CPT/HCPCS: 17000; 99213 ==

== ENCOUNTER → 2025-04-29 12:35 | Outpatient (BNVA) | payer OTHER, SELFPAY | PROVIDERS: PCP Family Medicine; Visit Provider Internal Medicine Cardiovascular Disease | DX: I25.10 Atherosclerotic heart disease of native coronary artery without angina pectoris (principal); I10 Essential (primary) hypertension; E78.5 Hyperlipidemia, unspecified | CPT/HCPCS: 99214 ==

== ENCOUNTER → 2025-06-05 07:55 | Outpatient (BNVA) | payer OTHER, SELFPAY | PROVIDERS: PCP Family Medicine; Visit Provider Physician Assistant | DX: Z47.89 Encounter for other orthopedic aftercare (principal); Z96.651 Presence of right artificial knee joint; Z96.652 Presence of left artificial knee joint | CPT/HCPCS: 73560; 73565; 99213 ==

== ENCOUNTER 2025-06-11 11:56 | Outpatient (CLI) | payer OTHER, SELFPAY ==
[2025-06-11 13:06] LABS: Hematocrit 55.5 % (37-53); Hemoglobin 18.60 g/dL (11.27-16.99); Mean Corpuscular HGB Conc 33.5 g/dL (30-55); Mean Corpuscular Hemoglobin 31.7 pg (27-33); Mean Corpuscular Volume 94.5 fl (82-101); Nucleated Red Blood Cells % 0 %; Platelet Count 199 10^3/cmm (157-399); Red Blood Count 5.87 10^6/uL (3.85-5.65); White Blood Count 8.01 10^3/uL (3.29-11.43)
== END 2025-06-11 11:57 | disposition home or self-care (01) ==
LOC: LAB 11:57
PROVIDERS: Physician Assistant; PCP Family Medicine; Visit Provider Student in an Organized Health Care Education/Training Program
DX: Z01.818 Encounter for other preprocedural examination (principal); Z96.652 Presence of left artificial knee joint; Z96.651 Presence of right artificial knee joint
CPT/HCPCS: 36415; 85025; 85651; 86140

== ENCOUNTER 2025-06-12 07:43 | Outpatient (CLI) | payer OTHER, SELFPAY ==
--- NOTE | 2025-06-12 08:45 | NM_ITS ---
WS: [id number] NUCLEAR MEDICINE BONE SCAN 3 phase Radiopharmaceutical: 25.7 Tc-99m MDP mCi IV Injection site: Antecubital Postinjection imaging delay: 3 hr CLINICAL INFORMATION: rule out orthopedic hardware loosening FINDINGS: Normal blood flow and blood pool images. Bone lesions: Prior postoperative changes of bilateral TKAs. Normal blood flow, blood pool and delayed bone scan images. Normal periarticular postoperative uptake about both knees. No evidence of hardware loosening. Soft tissue contours: Diffuse LEFT ventricular myocardial uptake is visualized. This is nonspecific but can be seen with amyloidosis. This also can be seen with nonspecific myocarditis. Kidneys: Normal. Other findings: Degenerative type uptake both AC joints and sternoclavicular joints. NM/NM bone 3 phase 80053 IMPRESSION: 1. No evidence of hardware loosening. 2. This is nonspecific but has been associated with cardiac amyloidosis and my ocarditis. Recommend cardiology consultation.
== END 2025-06-12 07:44 | disposition home or self-care (01) ==
LOC: RAD 07:46
PROVIDERS: PCP Family Medicine; Visit Provider Physician Assistant
DX: Z96.652 Presence of left artificial knee joint (principal); Z03.89 Encounter for observation for other suspected diseases and conditions ruled out
CPT/HCPCS: 78315; A9561

== ENCOUNTER → 2025-06-17 15:27 | Outpatient (BNVA) | payer OTHER, SELFPAY | PROVIDERS: PCP Family Medicine; Visit Provider Internal Medicine Cardiovascular Disease | DX: I10 Essential (primary) hypertension (principal); I48.91 Unspecified atrial fibrillation; E85.4 Organ-limited amyloidosis; I43 Cardiomyopathy in diseases classified elsewhere; Z79.01 Long term (current) use of anticoagulants | CPT/HCPCS: 99214 ==

== ENCOUNTER 2025-06-19 14:03 | Outpatient (CLI) | payer OTHER, SELFPAY ==
--- NOTE | 2025-06-19 15:00 | USCV_ITS ---
Aj Sharp Age: 74 Gender: M : 1950 Exam Date: 06/19/2025 14:52 Ordering Phys: Marcia Thayer MD ([email or web address]) Technologist: ANAYA [place]am [place] [facility] [place]: New onset AFIB BP: 132 / 70 HR: 72 Rhythm: Sinus Technical Quality: Adequate MEASUREMENTS (Male / Female) Normal Values 2D ECHO LV Diastolic Diameter PLAX 4.2 cm 4.2 - 5.9 / 3.9 - 5.3 cm IVS Diastolic Thickness 1.1 cm 0.6 - 1.0 / 0.6 - 0.9 cm IVS Systolic Thickness 1.8 cm LVPW Diastolic Thickness 1.3 cm 0.6 - 1.0 / 0.6 - 0.9 cm LVPW Systolic Thickness 1.9 cm LVOT Diameter 2.0 cm LV Ejection Fraction 2D Teich 58.8 % LV Ejection Fraction MOD 4C 51.4 % LV Ejection Fraction MOD 2C 50.8 % LV Ejection Fraction 2C AL 52.0 % LA Diameter 4.2 cm RA Systolic Volume 4C AL 43.9 ml RA Systolic Volume 4C MOD 43.4 ml LA Sys Volume AL 74.2 cm cubed LA Sys Volume Index AL 33.5 cm cubed/m squared Aorta at Sinotubular Diameter 2.6 cm M-MODE LA Ao Ratio MM 1.6 AV Cusp Separation MM 1.4 cm DOPPLER AV Peak Velocity 107.0 cm/s LVOT Peak Velocity 67.0 cm/s AV Area Cont Eq vti 2.3 cm squared AV Area Cont Eq pk 1.9 cm squared MV Peak Velocity 114.0 cm/s MV Area PHT 5.5 cm squared Mitral E to A Ratio 4.2 TV Peak Velocity 159.0 cm/s TR Peak Velocity 211.0 cm/s TR Peak Gradient 17.8 mmHg TV Peak E Velocity 59.0 cm/s PV Peak Velocity 130.0 cm/s FINDINGS Left Ventricle Mildly increased left ventricular cavity size. Mildly decreased left ventricular systolic function. Left ventricular ejection fraction is estimated at 50 %. Global left ventricular hypokinesis. Right Ventricle Normal right ventricular size and systolic function. Right Atrium Normal right atrial size. Left Atrium Normal left atrial size. IA Septum Normal appearance of the interatrial septum. Mitral Valve Mildly thickened mitral valve. No mitral valve stenosis. Mild mitral valve regurgitation. Aortic Valve Moderate aortic valve calcification. No aortic valve stenosis. Trace aortic valve regurgitation. Tricuspid Valve Mild tricuspid valve regurgitation. Pulmonic Valve Normal pulmonic valve structure. No pulmonic valve stenosis or regurgitation. Pericardium No pericardial effusion. Aorta Normal diameter of the aortic root and ascending thoracic aorta. IVC Normal IVC diameter. CONCLUSIONS Mildly increased left ventricular cavity size. Mildly decreased left ventricular systolic function. Left ventricular ejection fraction is estimated at 50 %. Global left ventricular hypokinesis. Moderate aortic valve calcification. No aortic valve stenosis. Trace aortic valve regurgitation. Mildly thickened mitral valve. No mitral valve stenosis. Mild mitral valve regurgitation. There is no pericardial effusion. Right atrial pressure is around 5 mm of mercury. Marcia Thayer MD (Electronically Signed) Final Date: 28 June 2025 20:38 S
== END 2025-06-19 14:04 | disposition home or self-care (01) ==
LOC: RAD 14:04
PROVIDERS: PCP Family Medicine; Visit Provider Internal Medicine Cardiovascular Disease
DX: I48.91 Unspecified atrial fibrillation (principal); I35.8 Other nonrheumatic aortic valve disorders; I34.9 Nonrheumatic mitral valve disorder, unspecified
CPT/HCPCS: 93306

== ENCOUNTER 2025-06-30 14:53 | Oncology outpatient (recurring) (ONCR) | payer OTHER, SELFPAY ==
[2025-06-30 16:18] LABS: Hematocrit 54.3 % (37-53); Hemoglobin 18.60 g/dL (11.27-16.99); Mean Corpuscular HGB Conc 34.3 g/dL (30-55); Mean Corpuscular Hemoglobin 31.1 pg (27-33); Mean Corpuscular Volume 90.7 fl (82-101); Nucleated Red Blood Cells % 0 %; Platelet Count 167 10^3/cmm (157-399); Red Blood Count 5.99 10^6/uL (3.85-5.65); White Blood Count 7.67 10^3/uL (3.29-11.43)
[2025-06-30 16:34] LABS: Alanine Aminotransferase 47 U/L (0-41); Albumin Level 4.5 g/dL (3.5-5.2); Alkaline Phosphatase 91 U/L (40-130); Anion Gap 16.3 (5-19); Aspartate Amino Transferase 34 U/L (0-40); Blood Urea Nitrogen 22 mg/dL (8-23); Calcium 9.5 mg/dL (8.5-10.5); Carbon Dioxide 24 mmol/L (22-29); Chloride 99 mmol/L (98-107); Creatinine Clr Calc Pharmacy 88.6014; Globulin 3.4 g/dL (1.3-4.6); Glucose 104 mg/dL (65-115); Osmolality Calculated 284 mOsm/kg (285-295); Potassium 4.3 mmol/L (3.5-5.1); Sodium 135 mmol/L (136-145); Total Protein 7.9 g/dL (6.6-8.7)
[2025-07-07 13:24] LABS: CALR Exon 9 Mutation NOT DETECTED (NOT DETECTED); JAK2 Exon 12 Mutation NOT DETECTED (NOT DETECTED); JAK2 V617 Clinical Indication polycythemia vera; MPL Exon 10 Mutation NOT DETECTED (NOT DETECTED); Specimen Source blood
== END 2025-07-03 23:59 | disposition home or self-care (01) ==
PROVIDERS: PCP Family Medicine; Visit Provider Internal Medicine Medical Oncology
DX: D75.1 Secondary polycythemia (principal); G47.33 Obstructive sleep apnea (adult) (pediatric)
CPT/HCPCS: 80053; 81219; 81270; 81279; 81339; 85025; 99195; 99205

== ENCOUNTER 2025-07-20 13:13 | Oncology outpatient (recurring) (ONCR) | payer OTHER, SELFPAY | END 2025-08-02 23:59 | disposition home or self-care (01) | PROVIDERS: PCP Family Medicine; Visit Provider Internal Medicine Medical Oncology | DX: D75.1 Secondary polycythemia (principal); G47.33 Obstructive sleep apnea (adult) (pediatric) | CPT/HCPCS: 99214 ==

== ENCOUNTER → 2025-08-05 13:16 | Outpatient (BNVA) | payer OTHER, SELFPAY | PROVIDERS: PCP Family Medicine; Visit Provider Nurse Practitioner Family | DX: I48.0 Paroxysmal atrial fibrillation (principal); I10 Essential (primary) hypertension; D75.1 Secondary polycythemia; Z79.01 Long term (current) use of anticoagulants | CPT/HCPCS: 99214 ==

== ENCOUNTER 2025-08-17 10:32 | Oncology outpatient (recurring) (ONCR) | payer OTHER, SELFPAY ==
[2025-08-17 10:52] LABS: Hematocrit 52.7 % (37-53); Hemoglobin 17.70 g/dL (11.27-16.99); Mean Corpuscular HGB Conc 33.6 g/dL (30-55); Mean Corpuscular Hemoglobin 31.8 pg (27-33); Mean Corpuscular Volume 94.8 fl (82-101); Nucleated Red Blood Cells % 0 %; Platelet Count 229 10^3/cmm (157-399); Red Blood Count 5.56 10^6/uL (3.85-5.65); White Blood Count 7.73 10^3/uL (3.29-11.43)
[2025-08-17 11:13] LABS: Alanine Aminotransferase 25 U/L (0-41); Albumin Level 4.7 g/dL (3.5-5.2); Alkaline Phosphatase 95 U/L (40-130); Anion Gap 12.7 (5-19); Aspartate Amino Transferase 23 U/L (0-40); Blood Urea Nitrogen 14 mg/dL (8-23); Calcium 9.9 mg/dL (8.5-10.5); Carbon Dioxide 30 mmol/L (22-29); Chloride 101 mmol/L (98-107); Globulin 3.7 g/dL (1.3-4.6); Glucose 84 mg/dL (65-115); Osmolality Calculated 288 mOsm/kg (285-295); Potassium 4.7 mmol/L (3.5-5.1); Sodium 139 mmol/L (136-145); Total Protein 8.4 g/dL (6.6-8.7)
[2025-08-17 12:31] VITALS: BP 136/74; PULSE 84; RESP 18; TEMP 36.6; O2SAT 99
== END 2025-09-02 23:59 | disposition home or self-care (01) ==
PROVIDERS: PCP Family Medicine; Visit Provider Internal Medicine Medical Oncology
DX: D75.1 Secondary polycythemia (principal); Z79.899 Other long term (current) drug therapy
CPT/HCPCS: 36415; 80053; 85025; 99195